=== PATIENT | male | born 1940 | race Caucasian/White ===

== ENCOUNTER 2023-10-10 19:32 | Emergency (ER) | payer MEDICARE, BC, SELFPAY ==
[2023-10-10 19:33] VITALS: BP 172/74
[2023-10-10 20:00] VITALS: BMI 28.5
[2023-10-10 20:45] VITALS: BP 121/65
--- NOTE | 2023-10-10 22:22 | ED.GENMED ---
History of Present Illness
General
Chief Complaint: Fall
Source: patient
Exam Limitations: none
Time Seen by Provider: 10/10/23 19:55
Nursing documentation reviewed up to this point in time: agreed with
Travel History
Have you had any contact with someone who has COVID-19?: No
Do you have any symptoms of coronavirus? Fever > 100 degrees, chills, cough, shortness of breath, sore throat, loss of taste or smell, muscle aches, or headache?: No
History of Present Illness
History of Present Illness:
83-year-old male with a past medical history of hyperlipidemia who presents to the emergency room for evaluation after fall. Patient reports that he was holding his son's dog on a leash in his left hand and the dog pulled him and he fell towards
the left side. He says he landed on his left arm and left hip/knee. He thinks he had minor head trauma but did not lose consciousness. He was able to get up and has been ambulatory since the fall. He says he had some soreness in his left
shoulder, left wrist, left knee and left hip since the fall and he also has mild headache. Came to the emergency room for assessment. Denies any neck pain or back pain. Denies any chest or abdominal pain. He denies being on blood thinners.
Past History
Past History
ED Past Medical History: None
ED Past Surgical History: None
Social History
Tobacco: Non-smoker
Alcohol: None
Review of Systems
Review of Systems
All Other Systems: ROS reviewed and negative except as documented in HPI and ROS
Constitutional: Denies fever or chills
Respiratory: Denies cough or trouble breathing
Cardiac: Denies chest pain or palpitations
ABD/GI: Denies abdominal pain, nausea or vomiting
: Denies flank pain
Musculoskeletal: Reports joint pain (Left knee pain, left wrist pain, left shoulder pain, left hip pain); Denies neck pain or back pain
Neurological: Reports headache; Denies dizzy, weakness or numbness
Phy Exam
Physical Exam
Physical Exam:
General: Awake, alert, oriented x3; no acute distress
Head: Normocephalic, atraumatic
Eyes: Conjunctiva normal, pupils equal round and reactive to light bilaterally
Throat: Airway intact, handling secretions
Neck: Trachea midline, no cervical spine tenderness
Lungs: Breathing comfortably not in distress
Heart: Regular rate; no chest wall tenderness
Abd: Soft, non distended, nontender
Neuro: Cranial nerves grossly intact, speech fluid, no gross motor or sensory deficits
Skin: Minor abrasion to the left wrist, left knee
Extremities:
Left shoulder�minor tenderness anterior humeral head but no deformity, full active range of motion with minimal discomfort
Left wrist�minor abrasion to the hypothenar eminence of the left no swelling or deformity left wrist, no bony tenderness in the left wrist including in the snuffbox and full active range of motion without discomfort
Left knee�minor abrasion of the left knee near tibial tuberosity, no effusion, no joint line tenderness, no pain with manipulation of patella, full active range of motion left knee and able to bear weight
Left hip�no ecchymosis, full active range of motion, weightbearing with minimal discomfort and normal gait without limp
Rest of extremities�atraumatic, good range of motion; he has good pulses in all extremities
Scores
Heart Failure Risk
Heart Failure Risk Score: Not Applicable
Heart Score for Chest Pain Patients
STEMI patient?: Not applicable
Withdrawal Assessment of Alcohol
Withdrawal Assessment Completed?: Not applicable
Course
Orders/Labs/Results
Orders:
Orders
10/10/23 20:01
CR Hip - LT w/wo Pel 2-3 Vw* Urgent
Comment:
Reason For Exam: pain s/p fall onto left side
Include a pelvis x-ray?: Yes
CR Knee - Left 4 Or More View* Urgent
Comment:
Reason For Exam: pain s/p fall onto left side
CR Shoulder, Trauma - Left Urgent
Reason For Exam: pain s/p fall onto left side
CR Wrist - Left Min 3 Views Urgent
Comment:
Reason For Exam: pain s/p fall onto left side
10/10/23 20:02
CT Cervical Spine W/o Iv Contr Urgent
Comment:
Reason For Exam: fall onto left side with headstrike
CT Head W/o Iv Contrast Urgent
Comment:
Reason For Exam: fall onto left side with headstrike
Vital Signs
Initial and Last Documented VS:
Initial Vital Signs
Temp Pulse Resp BP Pulse Ox
36.7 C 73 18 172/74 98
10/10/23 19:33 10/10/23 19:33 10/10/23 19:33 10/10/23 19:33 10/10/23 19:33
Last Documented Vital Signs
Temp Pulse Resp BP Pulse Ox
36.7 C 73 18 121/65 98
10/10/23 19:33 10/10/23 19:33 10/10/23 19:33 10/10/23 20:45 10/10/23 19:33
MDM/Problems Addressed
Differential Diagnosis Includes:
Musculoskeletal complaints: Fracture, contusion, dislocation, sprain
Head trauma: Must rule out intracranial hemorrhage although low clinical suspicion; differential would also include mild concussion, scalp contusion
MDM/Problems Addressed:
83-year-old male presents for evaluation after a fall as described above. Landed on his left side with complaints as above. He was hypertensive in triage normalized by my assessment; rest of vitals normal. Exam as above. Does not appear to have
any significant injuries. He had imaging ordered in triage including CT head and cervical spine which were negative for any acute posttraumatic injuries. X-rays of the left wrist, shoulder, knee, hip all negative for any acute pathology, only
chronic osteoarthritis. Cleaned and dressed his minor abrasions; his tetanus is up-to-date. Will plan to discharge advised rest, ice, Tylenol as needed. Patient very happy with this plan and in fact is requesting discharge. All questions
answered.
*Radiology
Radiology exam reviewed: radiology read reviewed
*Pulse Oximetry
Patient hypoxic: no
*Critical Care Note
Total Time (30-74mins, 75-104mins- exclusive of procedures): Not Applicable
Data Reviewed
Source: patient and records
ED Attending Note
-
Portions of this chart may have been created with voice recognition software.� Occasional wrong word or��sound alike� substitutions may have occurred due to the inherent limitations of voice recognition software.
Discharge Plan
Departure
Patient Disposition: Home (Routine Discharge)
Date of Disposition: 10/10/23
Time of Disposition: 21:57
Patient with high blood pressure during this ER visit?: No
Discharge Problem:
Abrasion, Contusion of knee, Left wrist sprain, Contusion of left shoulder, Contusion of hip
Instructions: Contusion (DC), Skin Abrasions (DC)
Prescriptions:
No Action
amoxicillin-pot clavulanate 875-125 mg tablet
1 tab PO BID 7 Days Qty: 14 0RF
amoxicillin 500 mg capsule
500 mg PO BID Qty: 10 0RF
Referrals:
Williams Mullen MD [Family Provider] - Follow up in 5-7 days
Activity Restrictions/Additional Instructions:
Thank you for visiting the Emergency Department at [facility].
1. Please schedule a follow up appointment as directed. Call first thing tomorrow morning to make an appointment.
2. If indicated, please take your medications as instructed and indicated on discharge paperwork.
3. If any of your symptoms do not improve, or persist, or become more severe within 6-12 hours, please return to the emergency department for further care.
4. Please return to the emergency department if you develop a headache, neck pain/stiffness, fever greater than 100.4F, chest pain, shortness of breath, persistent nausea, vomiting, slurred speech, difficulty walking, numbness/tingling, weakness,
signs of infection or any other symptoms that are worrisome to you.
Please call [phone] if you have any questions.
Interventions
Interventions:
*Risk Screen - Suicide Last Done: 10/10/23 19:33
*General Assessment Last Done: 10/10/23 19:33
*Neglect/Abuse Screening Last Done: 10/10/23 19:33
ED- Fall Risk Assessment Last Done: 10/10/23 20:00
*ED COVID-19 Vaccine History Last Done: 10/10/23 19:33
*Nursing Disposition Last Done: 10/10/23 22:12
ED-Musculoskeletal Assessment Last Done: 10/10/23 20:00
ED- Neurological Assessment Last Done: 10/10/23 20:00
ED-Skin Assessment Last Done: 10/10/23 20:00
Discharge Date and Time
Discharge Date/Time: 10/10/23 22:12
Print Language: DIVEHI
== END 2023-10-10 22:12 | disposition home or self-care (01) ==
LOC: EMR 19:32
PROVIDERS: EMERGENCY PHYSICIAN Emergency Medicine; FAMILY PHYSICIAN Internal Medicine
DX: S80.02XA Contusion of left knee, initial encounter (principal); S63.502A Unspecified sprain of left wrist, initial encounter; S40.012A Contusion of left shoulder, initial encounter; S70.02XA Contusion of left hip, initial encounter; S60.812A Abrasion of left wrist, initial encounter; W19.XXXA Unspecified fall, initial encounter; E78.5 Hyperlipidemia, unspecified
CPT/HCPCS: 99285; 70450; 72125; 73030; 73110; 73502; 73564

== ENCOUNTER 2024-01-11 13:25 | Emergency (ER) | payer MEDICARE, BC, SELFPAY ==
[2024-01-11 13:33] VITALS: BP 118/62; BMI 26.6
--- NOTE | 2024-01-11 14:41 | ED.SKININJ ---
HPI-Injury
General
Chief Complaint: Bite
Source: patient
Exam Limitations: none
Time Seen by Provider: 01/11/24 14:17
Nursing documentation reviewed up to this point in time: agreed with
History of Present Illness-Injury
Initial Injury comments:
PT IS A 83 Y/O m WITH H/O HLD, HTN
says 6 weeks ago he was accidentally bit by his dog on his L posterior calf and it got infected with bad cellulitis
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
he ended up going home and getting daily infusions of invanz through wound center
he healed well
yesterdya he scraped his left forearm on the door in his house, has a skin tear
and today he got bit by a dog on the right arm while he was at the dog park
he says the plant breeder of the dog told him the dog's vaccines were UTD and to belong to this dog park, dogs have to have shots on file
he did not get the plant breeder's number and he does not want rabies vaccines
tetanus is 2021
pt is worried his wounds will get infected
Past History
Past History
ED Past Medical History: None
ED Past Surgical History: None
Social History
Tobacco: Non-smoker
Alcohol: None
Course
Vital Signs
Initial and Last Documented VS:
Initial Vital Signs
Temp Pulse Resp BP Pulse Ox
98.9 F 76 16 118/62 99
01/11/24 13:33 01/11/24 13:33 01/11/24 13:33 01/11/24 13:33 01/11/24 13:33
Last Documented Vital Signs
Temp Pulse Resp BP Pulse Ox
98.9 F 76 16 118/62 99
01/11/24 13:33 01/11/24 13:33 01/11/24 13:33 01/11/24 13:33 01/11/24 13:33
ED Attending Note
-
Portions of this chart may have been created with voice recognition software.� Occasional wrong word or��sound alike� substitutions may have occurred due to the inherent limitations of voice recognition software.
Discharge Plan
Departure
Prescriptions:
No Action
amoxicillin-pot clavulanate 875-125 mg tablet
1 tab PO BID 7 Days Qty: 14 0RF
amoxicillin 500 mg capsule
500 mg PO BID Qty: 10 0RF
Referrals:
Williams Mullen MD [Family Provider] -
Interventions
Interventions:
*Risk Screen - Suicide Last Done: 01/11/24 13:33
*General Assessment Last Done: 01/11/24 13:51
*Neglect/Abuse Screening Last Done: 01/11/24 13:33
ED- Fall Risk Assessment Last Done: 01/11/24 13:56
*ED COVID-19 Vaccine History Last Done: 01/11/24 13:51
ED-Skin Assessment Last Done: 01/11/24 13:56
Discharge Date and Time
Print Language: IRANIAN
[2024-01-11] MEDS: AUGMENTIN 500 MG/125 MG 1 TABLET PO (15:20)
== END 2024-01-11 15:25 | disposition home or self-care (01) ==
LOC: EMR 13:25
PROVIDERS: EMERGENCY PHYSICIAN Emergency Medicine; FAMILY PHYSICIAN Internal Medicine
DX: S51.851A Open bite of right forearm, initial encounter (principal); W54.0XXA Bitten by dog, initial encounter
CPT/HCPCS: 99282

== ENCOUNTER 2024-02-08 14:41 | Emergency (ER) | payer MEDICARE, BC, SELFPAY ==
[2024-02-08 14:45] VITALS: BP 144/80
[2024-02-08 17:52] LABS: % Basophils 0.5 % (0-2); % Immature Granulocytes 0.2 % (0-0.5); % Lymphocytes 22.3 % (20.5-51.1); % Monocytes 12.6 % (1.7-9.3); % Neutrophils 62.4 % (42.2-75.2); Absolute Eosinophils 0.1 10^3/uL (0-0.7); Absolute Lymphocytes 1.5 10^3/uL (1.2-3.4); Absolute Monocytes 0.8 10^3/uL (0.1-0.6); Absolute Neutrophils 4.2 10^3/uL (1.4-6.5); Hematocrit 39.8 % (39.0-52.0); Hemoglobin 13.8 g/dL (13.0-18.0); Mean Corp Hgb Conc. 34.7 g/dL (33.0-37.0); Mean Corpuscular Hgb 31.3 pg (27.0-31.0); Mean Corpuscular Volume 90.2 fL (80.0-94.0); Mean Platelet Volume 9.5 fL (7.4-10.4); Nucleated Red Blood Cells % 0 % (-); Platelet Count 243 10^3/uL (130-400); Red Blood Cell Count 4.41 10^6/uL (4.70-6.10); White Blood Cell Count 6.7 10^3/uL (4.8-10.8)
[2024-02-08 18:08] LABS: ALT (SGPT) 36 U/L (0-50); AST (SGOT) 30 U/L (17-59); Albumin 4.6 g/dl (3.5-5.0); Alkaline Phosphatase 80 U/L (38-126); Blood Urea Nitrogen 23 mg/dl (9-20); Calcium 9.6 mg/dl (8.4-10.2); Carbon Dioxide 27 mmol/L (22-30); Chloride 102 mmol/L (98-107); Glucose 93 mg/dl (70-99); Potassium 4.9 mmol/L (3.5-5.1); Sodium 139 mmol/L (135-145); Total Bilirubin 0.6 mg/dl (0.2-1.3); eGFR > 60.00
[2024-02-08 18:14] LABS: Troponin I 0.019 ng/ml
--- NOTE | 2024-02-08 19:07 | ED.SKININJ ---
HPI-Injury
General
Chief Complaint: Skin Problem
Source: patient
Exam Limitations: none
Time Seen by Provider: 02/08/24 16:21
Nursing documentation reviewed up to this point in time: agreed with
History of Present Illness-Injury
Is this injury a work related problem?: No
Is pt an associate of [facility]?: No
Initial Injury comments:
Patient states he sustained multiple wounds to left posterior leg in August as a result of scratches from his dog. He was treated for cellulits and he states all of his wounds healed but he continues to have issues with 1 wound on left calf. Site
now is becoming red, swollen, and painful. Thick scab approx 1cm round covering wound. Brought self to ED for eval. He denies fever, chills. Reports an episode of intermittent sharp pain to his chest earlier this afternoon. No aggravating or
alleviating factors. Denies and n/v/diaphoresis. No SOB. No prior history of same. Reports symptm lasted 'for just a few minutes. Currently pain free.
Past History
Past History
ED Past Medical History: GERD, HTN and Hypercholesterolemia
ED Past Surgical History: None
Social History
Tobacco: Non-smoker
Alcohol: None
Review of Systems
Review of Systems
Allergies reviewed?: Yes
All Other Systems: ROS reviewed and negative except as documented in HPI and ROS
Constitutional: Reports no symptoms
Musculoskeletal: Reports no symptoms
Skin: Reports other (1cm round granulated wound to left calf. Mild surrounding erythema. Tender to touch)
Neurological: Reports no symptoms
Psychiatric: Reports no symptoms
Phy Exam
General Physical Exam
General Presentation: well appearing and no apparent distress
General age: appears stated age
General Skin: warm and dry
General Habitus: normal
Musculoskeletal Exam
Musculoskeletal Exam: full ROM and neuro vasc intact
Skin Exam
Skin Exam: normal color, warm/dry, no rash and other (1cm round grandulated wound to left calf. Mild surrounding erythema. Tender. Granulated tissue removed by me at the request of his dermatololgist. Started on clindamycin 300mg bid at request
of his private derm (jenny). No drainage from wound. )
Psychiatric Exam
Psychiatric Exam: normal mood/affect
Course
Orders/Labs/Results
Orders:
Orders
02/08/24 14:43
Electrocardiogram (*1) Urgent
Reason for Study: Chest Pain
02/08/24 14:44
EKG- Treatment ONCE
02/08/24 17:06
Clindamycin HCl [Cleocin] 300 mg PO NOW STA
02/08/24 17:27
Complete Blood Count/With Diff Urgent
Comprehensive Metabolic Panel Urgent
Troponin I Urgent
Wound Culture [Wound/Abscess/Other Culture] Urgent
PIA Source: Leg
Specimen Description: Left
Date Specimen was Collected: 02/08/24
Time Specimen was Collected: 17:05
02/08/24 17:47
Mupirocin [Bactroban 2% Ointment] 1 applic TOPICAL NOW STA
Abnormal Lab Results
02/08/24
17:27
RBC 4.41 L 10^6/uL
(4.70-6.10)
MCH 31.3 H pg
(27.0-31.0)
Absolute Monos (auto) 0.8 H 10^3/uL
(0.1-0.6)
Monocytes % 12.6 H %
(1.7-9.3)
BUN 23 H mg/dl
(9-20)
02/08/24 17:27
02/08/24 17:27
Vital Signs
Initial and Last Documented VS:
Initial Vital Signs
Temp Pulse Resp BP Pulse Ox
98.2 F 76 16 144/80 98
02/08/24 14:45 02/08/24 14:45 02/08/24 14:45 02/08/24 14:45 02/08/24 14:45
Last Documented Vital Signs
Temp Pulse Resp BP Pulse Ox
98.2 F 76 16 144/80 98
02/08/24 14:45 02/08/24 14:45 02/08/24 14:45 02/08/24 14:45 02/08/24 14:45
*Critical Care Note
Total Time (30-74mins, 75-104mins- exclusive of procedures): Not Applicable
Update Note
Update Note:
Spoke with patients private optometry professor by phone. He requested debridement of wound, wound culture, clindamycin 300mg bid. All completed. No further episodes of sharp chest pain. EKG, troponin neg. He is discharged home and will follow up with
PCP and derm. Given instructions on s/s to return to ED and he is agreeable to plan.
ED Attending Note
-
Portions of this chart may have been created with voice recognition software.� Occasional wrong word or��sound alike� substitutions may have occurred due to the inherent limitations of voice recognition software.
Discharge Plan
Departure
Patient Disposition: Home (Routine Discharge)
Date of Disposition: 02/08/24
Time of Disposition: 18:52
Patient with high blood pressure during this ER visit?: No
Condition: Good
Covid-19: Not Applicable
Discharge Problem:
Cellulitis and abscess of left leg
Instructions: Wound Care (DC), Cellulitis (Skin Infection), Adult (DC)
Prescriptions:
New
clindamycin HCl 300 mg capsule
300 mg PO BID Qty: 20 0RF
mupirocin 2 % ointment
1 applic topical BID Qty: 15 0RF
No Action
amoxicillin-pot clavulanate 875-125 mg tablet
1 tab PO BID 7 Days Qty: 14 0RF
amoxicillin 500 mg capsule
500 mg PO BID Qty: 10 0RF
amoxicillin-pot clavulanate [Augmentin] 500-125 mg tablet
1 tab PO BID Qty: 14 0RF
Referrals:
Williams Mullen MD [Family Provider] -
[facility] - Call in 1-3 days for appt
Activity Restrictions/Additional Instructions:
Return to the emergency department immediately for fever/chills, increasing pain/redness/swelling/drainge left leg wound, or for any further concerns.
Interventions
Interventions:
*Risk Screen - Suicide Last Done: 02/08/24 16:00
*General Assessment Last Done: 02/08/24 16:00
*Neglect/Abuse Screening Last Done: 02/08/24 16:00
ED- Fall Risk Assessment Last Done: 02/08/24 16:00
ED- Cardiac Assessment Last Done: 02/08/24 16:00
Discharge Date and Time
Print Language: PASHTO
[2024-02-08] MEDS: BACTROBAN 2% OINTMENT 1 APPLIC TOPICAL (19:31)
[2024-02-08] MEDS: CLEOCIN 300 MG PO (19:31)
== END 2024-02-08 19:51 | disposition home or self-care (01) ==
LOC: EMR 14:41
PROVIDERS: Nurse Practitioner; EMERGENCY PHYSICIAN Emergency Medicine; FAMILY PHYSICIAN Internal Medicine
DX: L02.416 Cutaneous abscess of left lower limb (principal); L03.116 Cellulitis of left lower limb
CPT/HCPCS: 99284; 97597; 80053; 84484; 85025; 87070; 87077; 87205; 93005

== ENCOUNTER → 2024-02-24 12:25 | Outpatient (REF) | payer MEDICARE, BC, SELFPAY | LOC: WOUND 12:25 | PROVIDERS: ATTENDING PHYSICIAN Surgery | DX: L97.222 Non-pressure chronic ulcer of left calf with fat layer exposed (principal); L97.211 Non-pressure chronic ulcer of right calf limited to breakdown of skin; D49.2 Neoplasm of unspecified behavior of bone, soft tissue, and skin; I87.2 Venous insufficiency (chronic) (peripheral); I73.9 Peripheral vascular disease, unspecified | CPT/HCPCS: 88305; 11104; 11105; 99204 ==

== ENCOUNTER → 2024-03-02 13:12 | Outpatient (REF) | payer MEDICARE, BC, SELFPAY | LOC: WOUND 13:12 | PROVIDERS: ATTENDING PHYSICIAN Surgery | DX: L97.222 Non-pressure chronic ulcer of left calf with fat layer exposed (principal); L97.211 Non-pressure chronic ulcer of right calf limited to breakdown of skin; D49.2 Neoplasm of unspecified behavior of bone, soft tissue, and skin; I87.2 Venous insufficiency (chronic) (peripheral); I73.9 Peripheral vascular disease, unspecified | CPT/HCPCS: 99213 ==

== ENCOUNTER → 2024-03-08 12:57 | Outpatient (REF) | payer MEDICARE, BC, SELFPAY | LOC: RAD 12:57 | PROVIDERS: ATTENDING PHYSICIAN Surgery; FAMILY PHYSICIAN Internal Medicine | DX: L97.222 Non-pressure chronic ulcer of left calf with fat layer exposed (principal); I73.9 Peripheral vascular disease, unspecified | CPT/HCPCS: 93922; 93925 ==

== ENCOUNTER → 2024-03-12 10:51 | Outpatient (REF) | payer MEDICARE, BC, SELFPAY | LOC: WOUND 10:51 | PROVIDERS: ATTENDING PHYSICIAN Surgery | DX: L97.222 Non-pressure chronic ulcer of left calf with fat layer exposed (principal); L97.211 Non-pressure chronic ulcer of right calf limited to breakdown of skin; D49.2 Neoplasm of unspecified behavior of bone, soft tissue, and skin; I87.2 Venous insufficiency (chronic) (peripheral); I73.9 Peripheral vascular disease, unspecified | CPT/HCPCS: 99213 ==

== ENCOUNTER → 2024-03-24 13:22 | Outpatient (REF) | payer MEDICARE, BC, SELFPAY | LOC: RAD 13:22 | PROVIDERS: ATTENDING PHYSICIAN Surgery; FAMILY PHYSICIAN Internal Medicine | DX: L97.222 Non-pressure chronic ulcer of left calf with fat layer exposed (principal) | CPT/HCPCS: 93970 ==

== ENCOUNTER → 2024-03-26 14:36 | Outpatient (REF) | payer MEDICARE, BC, SELFPAY | LOC: WOUND 14:36 | PROVIDERS: ATTENDING PHYSICIAN Surgery; FAMILY PHYSICIAN Internal Medicine | DX: L97.222 Non-pressure chronic ulcer of left calf with fat layer exposed (principal); L97.211 Non-pressure chronic ulcer of right calf limited to breakdown of skin; D49.2 Neoplasm of unspecified behavior of bone, soft tissue, and skin; I87.2 Venous insufficiency (chronic) (peripheral); I73.9 Peripheral vascular disease, unspecified | CPT/HCPCS: 99213 ==

== ENCOUNTER → 2024-04-02 14:07 | Outpatient (REF) | payer MEDICARE, BC, SELFPAY | LOC: WOUND 14:07 | PROVIDERS: ATTENDING PHYSICIAN Surgery; FAMILY PHYSICIAN Internal Medicine | DX: L97.212 Non-pressure chronic ulcer of right calf with fat layer exposed (principal); D49.2 Neoplasm of unspecified behavior of bone, soft tissue, and skin; I87.2 Venous insufficiency (chronic) (peripheral); I73.9 Peripheral vascular disease, unspecified | CPT/HCPCS: 11042 ==

== ENCOUNTER → 2024-04-09 14:37 | Outpatient (REF) | payer MEDICARE, BC, SELFPAY | LOC: WOUND 14:37 | PROVIDERS: ATTENDING PHYSICIAN Surgery; FAMILY PHYSICIAN Internal Medicine | DX: L97.212 Non-pressure chronic ulcer of right calf with fat layer exposed (principal); L97.121 Non-pressure chronic ulcer of left thigh limited to breakdown of skin; D49.2 Neoplasm of unspecified behavior of bone, soft tissue, and skin; I87.2 Venous insufficiency (chronic) (peripheral); I73.9 Peripheral vascular disease, unspecified | CPT/HCPCS: 11042 ==

== ENCOUNTER → 2024-04-23 14:36 | Outpatient (REF) | payer MEDICARE, BC, SELFPAY | LOC: WOUND 14:36 | PROVIDERS: ATTENDING PHYSICIAN Surgery; FAMILY PHYSICIAN Internal Medicine | DX: L97.212 Non-pressure chronic ulcer of right calf with fat layer exposed (principal); L97.121 Non-pressure chronic ulcer of left thigh limited to breakdown of skin; D49.2 Neoplasm of unspecified behavior of bone, soft tissue, and skin; I87.2 Venous insufficiency (chronic) (peripheral); I73.9 Peripheral vascular disease, unspecified | CPT/HCPCS: 99213 ==

== ENCOUNTER → 2024-05-07 14:38 | Outpatient (REF) | payer MEDICARE, BC, SELFPAY | LOC: WOUND 14:38 | PROVIDERS: ATTENDING PHYSICIAN Surgery; FAMILY PHYSICIAN Internal Medicine | DX: L97.321 Non-pressure chronic ulcer of left ankle limited to breakdown of skin (principal); S51.802A Unspecified open wound of left forearm, initial encounter; D49.2 Neoplasm of unspecified behavior of bone, soft tissue, and skin; I87.2 Venous insufficiency (chronic) (peripheral); I73.9 Peripheral vascular disease, unspecified; X58.XXXA Exposure to other specified factors, initial encounter | CPT/HCPCS: 99213 ==

== ENCOUNTER → 2024-05-21 14:04 | Outpatient (REF) | payer MEDICARE, BC, SELFPAY | LOC: WOUND 14:04 | PROVIDERS: ATTENDING PHYSICIAN Surgery; FAMILY PHYSICIAN Internal Medicine | DX: L97.321 Non-pressure chronic ulcer of left ankle limited to breakdown of skin (principal); S51.802A Unspecified open wound of left forearm, initial encounter; I87.2 Venous insufficiency (chronic) (peripheral); I73.9 Peripheral vascular disease, unspecified; X58.XXXA Exposure to other specified factors, initial encounter | CPT/HCPCS: 99213 ==

== ENCOUNTER → 2024-06-04 14:27 | Outpatient (REF) | payer MEDICARE, BC, SELFPAY | LOC: WOUND 14:27 | PROVIDERS: ATTENDING PHYSICIAN Surgery; FAMILY PHYSICIAN Internal Medicine | DX: L97.111 Non-pressure chronic ulcer of right thigh limited to breakdown of skin (principal); S61.402A Unspecified open wound of left hand, initial encounter; D49.2 Neoplasm of unspecified behavior of bone, soft tissue, and skin; I87.2 Venous insufficiency (chronic) (peripheral); I73.9 Peripheral vascular disease, unspecified; X58.XXXA Exposure to other specified factors, initial encounter | CPT/HCPCS: 99213 ==

== ENCOUNTER 2024-06-18 22:39 | Emergency (ER) | payer MEDICARE, BC, SELFPAY ==
--- NOTE | 2024-06-18 22:40 | ED.GENMED ---
ED Provider Triage
<Brad Marcos PA-C - Last Filed: 06/18/24 22:44>
-
Patient seen by provider in Triage?: Seen in Triage
84M presenting to ED for evaluation of RLE edema that he noticed tonight. PCP sent for eval for possible DVT. States feels numb but no color changes. Moderate edema noted on exam. Has palpable pedal pulse. CR < 2 sec. Warm. able to ROM foot/ankle.
US ordered
History of Present Illness
<Brad Marcos PA-C - Last Filed: 06/18/24 22:44>
General
Chief Complaint: Swelling
Time Seen by Provider: 06/19/24 01:04
<Lefty Phan MD - Last Filed: 06/19/24 02:52>
General
Source: patient
Exam Limitations: none
History of Present Illness
History of Present Illness:
84-year-old male complaining of some increasing pain right leg. Mostly lower lateral towards the ankle. Started earlier today. Feels the leg is swollen. Has had some mild shortness of breath in the morning the last week or so. However not short
of breath now. No fevers chills chest pain or other complaints
Past History
<Brad Marcos PA-C - Last Filed: 06/18/24 22:44>
Past History
ED Past Medical History: GERD, HTN and Hypercholesterolemia
ED Past Surgical History: None
Social History
Tobacco: Non-smoker
Alcohol: None
Review of Systems
<Lefty Phan MD - Last Filed: 06/19/24 02:52>
Review of Systems
All Other Systems: Not applicable
Constitutional: Denies fever or chills
Cardiac: Reports no symptoms
Phy Exam
<Lefty Phan MD - Last Filed: 06/19/24 02:52>
Physical Exam
Physical Exam:
GENERAL: Alert and oriented in no apparent distress
EYE: Orbits normal.
NECK: Supple
CARDIAC: Regular rate and rhythm without any obvious murmurs.
LUNGS: Clear breath sounds,normal
NEUROLOGICAL: Alert and oriented , grossly non-focal
SKIN: Warm and dry. Shininess to both lower extremities right greater than left. Chronic hyperpigmentation changes. Chronic edema although right leg is slightly more swollen. No tenseness to the lower leg. Good distal pulses and color. Minimal
warmth. Questionable mild erythema. Wound with dressing to the right upper thigh without surrounding erythema
PSYCH: Normal and appropriate interaction.
Scores
<Lefty Phan MD - Last Filed: 06/19/24 02:52>
Heart Failure Risk
Heart Failure Risk Score: Not Applicable
Course
<Brad Marocs PA-C - Last Filed: 06/18/24 22:44>
Orders/Labs/Results
Orders:
Orders
06/19/24 02:48
Doxycycline [Vibramycin] 100 mg PO NOW STA
06/19/24 22:44
US Periph Venous LOWER Ext RT Urgent
Reason For Exam: pain, edema
Vital Signs
Initial and Last Documented VS:
Initial Vital Signs
Temp Pulse Resp BP Pulse Ox
98.3 F 74 16 175/85 92
06/18/24 22:41 06/18/24 22:41 06/18/24 22:41 06/18/24 22:41 06/18/24 22:41
Last Documented Vital Signs
Temp Pulse Resp BP Pulse Ox
98.3 F 74 16 175/85 92
06/18/24 22:41 06/18/24 22:41 06/18/24 22:41 06/18/24 22:41 06/18/24 22:41
<Lefty Phan MD - Last Filed: 06/19/24 02:52>
Orders/Labs/Results
Orders:
Orders
06/19/24 02:48
Doxycycline [Vibramycin] 100 mg PO NOW STA
06/19/24 22:44
US Periph Venous LOWER Ext RT Urgent
Reason For Exam: pain, edema
Vital Signs
Initial and Last Documented VS:
Initial Vital Signs
Temp Pulse Resp BP Pulse Ox
98.3 F 74 16 175/85 92
06/18/24 22:41 06/18/24 22:41 06/18/24 22:41 06/18/24 22:41 06/18/24 22:41
Last Documented Vital Signs
Temp Pulse Resp BP Pulse Ox
98.3 F 74 16 175/85 92
06/18/24 22:41 06/18/24 22:41 06/18/24 22:41 06/18/24 22:41 06/18/24 22:41
<Lefty Phan MD - Last Filed: 06/19/24 02:52>
MDM/Problems Addressed
Differential Diagnosis Includes:
84-year-old male some pain to the right lower leg. Mild swelling and minimal warmth and erythema. Not convinced this is a cellulitis. No DVT by ultrasound. Good distal pulses. Nothing to suspect an arterial issue. Also nothing to suspect
compartment syndrome. Will cover for a mild cellulitis. Clinically not in heart failure.
<Lefty Phan MD - Last Filed: 06/19/24 02:52>
*Radiology
Radiology exam reviewed: radiology read reviewed (Negative ultrasound for DVT)
*Pulse Oximetry
Patient hypoxic: no
*Critical Care Note
Total Time (30-74mins, 75-104mins- exclusive of procedures): Not Applicable
Data Reviewed
Review of Other/Old Records Reveals: Labs, Records and Testing
ED Attending Note
<Brad Marcos PA-C - Last Filed: 06/18/24 22:44>
-
Portions of this chart may have been created with voice recognition software.� Occasional wrong word or��sound alike� substitutions may have occurred due to the inherent limitations of voice recognition software.
Discharge Plan
Departure
Patient Disposition: Home (Routine Discharge)
Date of Disposition: 06/19/24
Time of Disposition: 02:48
Patient with high blood pressure during this ER visit?: Yes
Discharge Problem:
Right lower extremity swelling, Possible cellulitis
Prescriptions:
New
doxycycline hyclate 100 mg capsule
100 mg PO BID 10 Days Qty: 20 0RF
No Action
amoxicillin-pot clavulanate 875-125 mg tablet
1 tab PO BID 7 Days Qty: 14 0RF
amoxicillin 500 mg capsule
500 mg PO BID Qty: 10 0RF
amoxicillin-pot clavulanate [Augmentin] 500-125 mg tablet
1 tab PO BID Qty: 14 0RF
clindamycin HCl 300 mg capsule
300 mg PO BID Qty: 20 0RF
mupirocin 2 % ointment
1 applic topical BID Qty: 15 0RF
Activity Restrictions/Additional Instructions:
Keep the leg elevated
Antibiotics as directed
Follow-up with your physician early in the week
The prescription was sent to your pharmacy
Return sooner with increased pain increased swelling increased redness fever or any other concerning symptoms
Interventions
Interventions:
*Risk Screen - Suicide Last Done: 06/18/24 22:41
*General Assessment Last Done: 06/18/24 22:41
*Neglect/Abuse Screening Last Done: 06/18/24 22:41
Discharge Date and Time
Print Language: GRENADIAN
[2024-06-18 22:41] VITALS: BP 175/85
[2024-06-19 02:00] VITALS: BMI 28.8
[2024-06-19] MEDS: VIBRAMYCIN 100 MG PO (03:03)
[2024-06-19 03:15] VITALS: BP 147/79
== END 2024-06-19 03:15 | disposition home or self-care (01) ==
LOC: EMR 22:39
PROVIDERS: EMERGENCY PHYSICIAN Emergency Medicine
DX: R22.41 Localized swelling, mass and lump, right lower limb (principal); K21.9 Gastro-esophageal reflux disease without esophagitis; I10 Essential (primary) hypertension; E78.00 Pure hypercholesterolemia, unspecified
CPT/HCPCS: 99284; 93971

== ENCOUNTER 2024-06-22 14:14 | Emergency (ER) | payer MEDICARE, BC, SELFPAY ==
--- NOTE | 2024-06-22 14:22 | ED.GENMED ---
ED Provider Triage
<Tala Light PA-C - Last Filed: 06/22/24 14:23>
-
Patient seen by provider in Triage?: Seen in Triage
Attestation: A medical screening examination has been initiated by a qualified medical provider. Based on the assessment performed at this time, it has been determined that an emergent medical condition may exist and the patient has been informed
that further medical evaluation and possible additional diagnostic testing may be needed.
HPI: 84yoM here with R lower leg pain and redness. Seen in the ED 4 days ago for the same. Venous duplex negative for DVT. Started on doxy for possible cellulitis. Here with worsening pain. No fevers.
GENERAL: Alert , in no apparent distress
EYE: No visual abnormalities.
NECK: Trachea midline
ENT: No visible abnormalities.
LUNGS: No acute respiratory distress
NEUROLOGICAL: Alert and oriented
SKIN: Skin intact. No visible changes.
MUSCULOSKELETAL: Moving extremities normally
PSYCH: Normal and appropriate interaction.
This is a medical evaluation conducted in person to initiate diagnostic evaluation and provide initial therapeutics. Please see further documentation by the treating clinician.
CBC and CMP ordered.
History of Present Illness
<Tala Light PA-C - Last Filed: 06/22/24 14:23>
General
Chief Complaint: Skin Problem
Time Seen by Provider: 06/22/24 16:47
<Wm Plascencia DO - Last Filed: 06/22/24 17:55>
General
Source: patient and records
Exam Limitations: none
Nursing documentation reviewed up to this point in time: agreed with
History of Present Illness
History of Present Illness:
84-year-old male presents with right lower extremity huang pain, seen here few days ago with similar complaints at that time his leg was red and swollen had a Doppler which was negative for clot started on doxycycline for cellulitis redness and
swelling is improved with the developed some pain, I did review pictures from a few days ago that the patient has on his phone patient had a dog bite to his left upper thigh few years ago treated with antibiotics orally ultimately with 10 days of IV
Invanz through infectious disease he is wondering if he can get that therapy now for his right lower extremity, he has had no fever chills no drainage he has another wound on his right upper extremity followed at the [facility]
which is healing
Past History
<Tala Light PA-C - Last Filed: 06/22/24 14:23>
Past History
ED Past Medical History: GERD, HTN and Hypercholesterolemia
ED Past Surgical History: None
Social History
Tobacco: Non-smoker
Alcohol: None
<Wm Plascencia DO - Last Filed: 06/22/24 17:55>
Social History
Drug: None
Personal:
Living: with family
Employment: Employed
Review of Systems
<Wm Plascencia DO - Last Filed: 06/22/24 17:55>
Review of Systems
All Other Systems: Not applicable
Constitutional: Denies fever or fatigue
EENT: Reports no symptoms
Respiratory: Reports no symptoms
Musculoskeletal: Reports muscle pain and edema
Skin: Reports other (Right anterior huang); Denies itching or rash
Neurological: Reports no symptoms
Phy Exam
<Wm Plascencia DO - Last Filed: 06/22/24 17:55>
Physical Exam
Physical Exam:
Physical Exam
General: no apparent distress, not acutely ill
Neck: No jaundice
Heart: s1/s2 regular rate and rhythm, no murmur. equal radial pulses.
Lungs: no acute respiratory distress. clear bilaterally
Abdomen: Not tender
Neuro: alert and oriented. no focal neurological deficits
Skin: no rash
Psychiatric: well kept. interactive and cooperative
Extremities: Right lower extremity minimal erythema and no warmth mild subjective tenderness distal pulses are intact(swelling redness markedly improved from a few days ago for my review of the picture) small well-healed
lesion on the right mid anterior thigh with no cellulitic change
Course
<Tala Light PA-C - Last Filed: 06/22/24 14:23>
Orders/Labs/Results
Orders:
Orders
06/22/24 14:27
Complete Blood Count/With Diff Urgent
Comprehensive Metabolic Panel Urgent
06/22/24 17:15
CeFAZolin 2 GRAM [Ancef] 2 grams in 10 ml IV NOW
06/22/24 17:17
Acetaminophen [Tylenol] 1,000 mg PO NOW STA
Abnormal Lab Results
06/22/24
14:27
MCHC 32.4 L g/dL
(33.0-37.0)
Absolute Monos (auto) 1.1 H 10^3/uL
(0.1-0.6)
Monocytes % 17.7 H %
(1.7-9.3)
BUN 21 H mg/dl
(9-20)
Glucose 103 H mg/dl
(70-99)
06/22/24 14:27
06/22/24 14:27
Vital Signs
Initial and Last Documented VS:
Initial Vital Signs
Temp Pulse Resp BP Pulse Ox
98.5 F 81 20 117/66 96
06/22/24 15:33 06/22/24 15:33 06/22/24 15:33 06/22/24 15:33 06/22/24 15:33
Last Documented Vital Signs
Temp Pulse Resp BP Pulse Ox
98.5 F 81 20 117/66 96
06/22/24 15:33 06/22/24 15:33 06/22/24 15:33 06/22/24 15:33 06/22/24 15:33
<Wm Plascencia DO - Last Filed: 06/22/24 17:55>
Orders/Labs/Results
Orders:
Orders
06/22/24 14:27
Complete Blood Count/With Diff Urgent
Comprehensive Metabolic Panel Urgent
06/22/24 17:15
CeFAZolin 2 GRAM [Ancef] 2 grams in 10 ml IV NOW
06/22/24 17:17
Acetaminophen [Tylenol] 1,000 mg PO NOW STA
Abnormal Lab Results
06/22/24
14:27
MCHC 32.4 L g/dL
(33.0-37.0)
Absolute Monos (auto) 1.1 H 10^3/uL
(0.1-0.6)
Monocytes % 17.7 H %
(1.7-9.3)
BUN 21 H mg/dl
(9-20)
Glucose 103 H mg/dl
(70-99)
06/22/24 14:27
06/22/24 14:27
Vital Signs
Initial and Last Documented VS:
Initial Vital Signs
Temp Pulse Resp BP Pulse Ox
98.5 F 81 20 117/66 96
06/22/24 15:33 06/22/24 15:33 06/22/24 15:33 06/22/24 15:33 06/22/24 15:33
Last Documented Vital Signs
Temp Pulse Resp BP Pulse Ox
98.5 F 81 20 117/66 96
06/22/24 15:33 06/22/24 15:33 06/22/24 15:33 06/22/24 15:33 06/22/24 15:33
<Wm Plascencia DO - Last Filed: 06/22/24 17:55>
MDM/Problems Addressed
Differential Diagnosis Includes:
Cellulitis neuropathy no signs of DVT by history and physical, no signs of compartment syndrome doubt abscess
MDM/Problems Addressed:
Right leg pain
Chronic conditions affecting care:
Recurrent cellulitis and wound
Acute Exacerbation and/or Progression of Chronic Illness:
Recurrent cellulitis
<Wm Plascencia DO - Last Filed: 06/22/24 17:55>
*Critical Care Note
Total Time (30-74mins, 75-104mins- exclusive of procedures): Not Applicable
<Wm Plascencia DO - Last Filed: 06/22/24 17:55>
Update Note
Update Note:
Update labs are noted, patient is not systemically ill, perhaps a little remaining cellulitis although he is clinically improving with doxycycline we will give some IV Ancef here I do not see indication for admission, nor Invanz, ultimately he may
benefit from outpatient ID evaluation nonurgently
ED Attending Note
<Tala Light PA-C - Last Filed: 06/22/24 14:23>
-
Portions of this chart may have been created with voice recognition software.� Occasional wrong word or��sound alike� substitutions may have occurred due to the inherent limitations of voice recognition software.
Discharge Plan
Departure
Patient Disposition: Home (Routine Discharge)
Date of Disposition: 06/22/24
Time of Disposition: 17:53
Patient with high blood pressure during this ER visit?: No
Condition: Good
Discharge Problem:
Cellulitis
Instructions: Wound Care (DC), Cellulitis (Skin Infection), Adult (DC)
Prescriptions:
New
cephalexin 500 mg capsule
500 mg PO Q6H 7 Days Qty: 28 0RF
No Action
amoxicillin-pot clavulanate 875-125 mg tablet
1 tab PO BID 7 Days Qty: 14 0RF
amoxicillin 500 mg capsule
500 mg PO BID Qty: 10 0RF
amoxicillin-pot clavulanate [Augmentin] 500-125 mg tablet
1 tab PO BID Qty: 14 0RF
clindamycin HCl 300 mg capsule
300 mg PO BID Qty: 20 0RF
mupirocin 2 % ointment
1 applic topical BID Qty: 15 0RF
doxycycline hyclate 100 mg capsule
100 mg PO BID 10 Days Qty: 20 0RF
Referrals:
Williams Mullen MD [Family Provider] -
Annette Doyle MD [Active] - Next open appointment
Activity Restrictions/Additional Instructions:
Continue doxycycline add Keflex 500 mg 4 times a day
Follow-up with your primary care provider and infectious disease
Interventions
Interventions:
*Risk Screen - Suicide Last Done: 06/22/24 14:20
*General Assessment Last Done: 06/22/24 14:20
*Neglect/Abuse Screening Last Done: 06/22/24 14:20
*ED COVID-19 Vaccine History Last Done: 06/22/24 14:20
Discharge Date and Time
Print Language: CROATIAN
[2024-06-22 14:37] LABS: % Eosinophils 3.1 % (0-6); % Immature Granulocytes 0.2 % (0-0.5); % Lymphocytes 23.6 % (20.5-51.1); % Monocytes 17.7 % (1.7-9.3); % Neutrophils 54.4 % (42.2-75.2); Absolute Basophils 0.1 10^3/uL (0-0.2); Absolute Eosinophils 0.2 10^3/uL (0-0.7); Absolute Lymphocytes 1.4 10^3/uL (1.2-3.4); Absolute Monocytes 1.1 10^3/uL (0.1-0.6); Absolute Neutrophils 3.3 10^3/uL (1.4-6.5); Hematocrit 42.3 % (39.0-52.0); Hemoglobin 13.7 g/dL (13.0-18.0); Mean Corp Hgb Conc. 32.4 g/dL (33.0-37.0); Mean Corpuscular Hgb 28.8 pg (27.0-31.0); Mean Corpuscular Volume 88.9 fL (80.0-94.0); Mean Platelet Volume 9.2 fL (7.4-10.4); Nucleated Red Blood Cells % 0 % (-); Platelet Count 278 10^3/uL (130-400); Red Blood Cell Count 4.76 10^6/uL (4.70-6.10); White Blood Cell Count 6.1 10^3/uL (4.8-10.8)
[2024-06-22 14:47] LABS: ALT (SGPT) 24 U/L (0-50); AST (SGOT) 23 U/L (17-59); Albumin 4.6 g/dl (3.5-5.0); Alkaline Phosphatase 74 U/L (38-126); Blood Urea Nitrogen 21 mg/dl (9-20); Calcium 9.2 mg/dl (8.4-10.2); Carbon Dioxide 28 mmol/L (22-30); Chloride 101 mmol/L (98-107); Glucose 103 mg/dl (70-99); Potassium 4.1 mmol/L (3.5-5.1); Sodium 138 mmol/L (135-145); Total Bilirubin 0.5 mg/dl (0.2-1.3); eGFR > 60.00
[2024-06-22 15:33] VITALS: BP 117/66
[2024-06-22] MEDS: ANCEF 10 IV (17:46)
[2024-06-22] MEDS: TYLENOL 1000 MG PO (17:47)
== END 2024-06-22 17:55 | disposition home or self-care (01) ==
LOC: EMR 14:14
PROVIDERS: Physician Assistant; EMERGENCY PHYSICIAN Emergency Medicine; FAMILY PHYSICIAN Internal Medicine
DX: L03.115 Cellulitis of right lower limb (principal); E78.00 Pure hypercholesterolemia, unspecified; I10 Essential (primary) hypertension; K21.9 Gastro-esophageal reflux disease without esophagitis
CPT/HCPCS: 96374; 99284; 80053; 85025

== ENCOUNTER → 2024-06-25 14:17 | Outpatient (REF) | payer MEDICARE, BC, SELFPAY | LOC: WOUND 14:17 | PROVIDERS: ATTENDING PHYSICIAN Surgery; FAMILY PHYSICIAN Internal Medicine | DX: L97.111 Non-pressure chronic ulcer of right thigh limited to breakdown of skin (principal); S61.402A Unspecified open wound of left hand, initial encounter; X58.XXXA Exposure to other specified factors, initial encounter; D49.2 Neoplasm of unspecified behavior of bone, soft tissue, and skin; I87.2 Venous insufficiency (chronic) (peripheral); I73.9 Peripheral vascular disease, unspecified | CPT/HCPCS: 99213 ==

== ENCOUNTER 2024-07-24 23:57 | Inpatient (IN) | payer MEDICARE, BC, SELFPAY ==
[2024-07-24 20:16] VITALS: BP 159/78; BMI 30.4
[2024-07-24 20:20] VITALS: BP 159/78
[2024-07-24 20:43] LABS: % Basophils 0.5 % (0-2); % Eosinophils 1.4 % (0-6); % Immature Granulocytes 0.3 % (0-0.5); % Lymphocytes 16.7 % (20.5-51.1); % Monocytes 16.9 % (1.7-9.3); % Neutrophils 64.2 % (42.2-75.2); Absolute Eosinophils 0.1 10^3/uL (0-0.7); Absolute Monocytes 1.1 10^3/uL (0.1-0.6); Hematocrit 37.6 % (39.0-52.0); Hemoglobin 11.7 g/dL (13.0-18.0); Mean Corp Hgb Conc. 31.1 g/dL (33.0-37.0); Mean Corpuscular Hgb 28.3 pg (27.0-31.0); Mean Platelet Volume 9.2 fL (7.4-10.4); Nucleated Red Blood Cells % 0 % (-); Platelet Count 242 10^3/uL (130-400); Red Blood Cell Count 4.13 10^6/uL (4.70-6.10); Red Cell Dist. Width 16.8 % (11.5-14.5); White Blood Cell Count 6.2 10^3/uL (4.8-10.8)
[2024-07-24 20:51] LABS: ALT (SGPT) 26 U/L (0-50); AST (SGOT) 24 U/L (17-59); Albumin 4.3 g/dl (3.5-5.0); Alkaline Phosphatase 97 U/L (38-126); Blood Urea Nitrogen 22 mg/dl (9-20); Calcium 8.9 mg/dl (8.4-10.2); Carbon Dioxide 31 mmol/L (22-30); Chloride 101 mmol/L (98-107); Estimated Creatinine Clearance 85 ml/min; Glucose 93 mg/dl (70-99); Potassium 4.1 mmol/L (3.5-5.1); Sodium 140 mmol/L (135-145); Total Bilirubin 0.9 mg/dl (0.2-1.3); Total Protein 6.5 g/dl (6.3-8.2); eGFR > 60.00
[2024-07-24 21:00] VITALS: BP 148/78
--- NOTE | 2024-07-24 21:56 | ED.GENMED ---
History of Present Illness
General
Chief Complaint: Breathing Problem
Source: patient
Exam Limitations: none
Time Seen by Provider: 07/24/24 20:41
Nursing documentation reviewed up to this point in time: agreed with
History of Present Illness
History of Present Illness:
84-year-old male diagnosed with RSV a week or so ago at an urgent care was having cough and shortness of breath low-grade fever, given steroids took 2 doses since then has had fatigue shortness of breath lower extremity edema cough wheezing rattling
in his chest 15 pound weight gain no history of heart failure not currently on a diuretic, appears to be in A-fib now seen again in urgent care earlier today suggested he go to the hospital he went home called 911 apparently had a low pulse ox
placed on oxygen
Past History
Past History
ED Past Medical History: GERD, HTN and Hypercholesterolemia
ED Past Surgical History: None
Social History
Tobacco: Non-smoker
Alcohol: None
Drug: None
Personal:
Living: with family
Employment: Employed
Phy Exam
Physical Exam
Physical Exam:
Physical Exam
General: Dyspneic appearing male
Neck: No jaundice
Heart: Irregular
Lungs: Bibasilar crackle
Abdomen: Nontender
Neuro: alert and oriented. no focal neurological deficits
Skin: no rash
Psychiatric: well kept. interactive and cooperative
Extremities: Edema is present
Scores
Heart Failure Risk
Heart Failure Risk Score: Yes
History of Stroke or TIA: No
History of intubation for respiratory distress: No
Heart rate on ED arrival >/= 110: No
SaO2 <90% on arrival on room air: Yes
HR >/=110 during 3min walk test (or too ill to perform test): Yes
ECG has acute ischemic changes: No
Urea >/=12mmol/L (BUN 33.6mg/dL): No
Serum CO2>/=35mmol/L: No
Troponin I or T elevated to MA Level (0.4mg/dL): No
NT-proBNP >/=5,000ng/L (5,000pg/ml): No
HF Risk Score: 3
Admission Status: HIGH RISK 15.9% Consider SNF treatment or admission to hospital
Course
Orders/Labs/Results
Orders:
Orders
07/24/24 20:28
Electrocardiogram (*1) Urgent
Reason for Study: Shortness of Breath
07/24/24 20:29
EKG- Treatment ONCE
07/24/24 20:30
Complete Blood Count/With Diff Urgent
Comprehensive Metabolic Panel Urgent
NT-proBNP Urgent
Troponin I Urgent
07/24/24 21:10
CR Chest - 2 Views Urgent
Comment:
Reason For Exam: sob
07/24/24 21:46
US Periph Venous LOWER Ext Kt Urgent
Comment:
Reason For Exam: swelling
07/24/24 22:08
Furosemide [Lasix] 60 mg IV NOW STA
Abnormal Lab Results
07/24/24
20:30
RBC 4.13 L 10^6/uL
(4.70-6.10)
Hgb 11.7 L g/dL
(13.0-18.0)
Hct 37.6 L %
(39.0-52.0)
MCHC 31.1 L g/dL
(33.0-37.0)
RDW 16.8 H %
(11.5-14.5)
Absolute Lymphs (auto) 1.0 L 10^3/uL
(1.2-3.4)
Absolute Monos (auto) 1.1 H 10^3/uL
(0.1-0.6)
Lymphocytes % 16.7 L %
(20.5-51.1)
Monocytes % 16.9 H %
(1.7-9.3)
Carbon Dioxide 31 H mmol/L
(22-30)
BUN 22 H mg/dl
(9-20)
07/24/24 20:30
07/24/24 20:30
Vital Signs
Initial and Last Documented VS:
Initial Vital Signs
Temp Pulse Resp BP Pulse Ox
98.5 F 81 21 159/78 94
07/24/24 20:16 07/24/24 20:16 07/24/24 20:16 07/24/24 20:16 07/24/24 20:16
Last Documented Vital Signs
Temp Pulse Resp BP Pulse Ox
98.5 F 81 21 159/78 95
07/24/24 20:16 07/24/24 20:16 07/24/24 20:20 07/24/24 20:20 07/24/24 20:20
MDM/Problems Addressed
Differential Diagnosis Includes:
Heart failure pneumonia bronchitis DVT PE
MDM/Problems Addressed:
Shortness of breath fatigue weight
Chronic conditions affecting care: HTN
Acute Exacerbation and/or Progression of Chronic Illness: HTN
*Radiology
Radiology exam reviewed: preliminary read by ED provider
*Pulse Oximetry
Patient hypoxic: yes
Comment: 87
*EKG
Interpreted by ED Provider?: Yes
Interpretation: abnormal
Comparison EKG: no comparison EKG present
Heart Rate: 70
Rate: normal
Rhythm: a-fib
Ischemia: no ischemia
*Welding Machine Operator Interpretation
Rate: normal
Interpretation: abnormal
Heart Rate: 70
Rhythm: a-fib
*Critical Care Note
Total Time (30-74mins, 75-104mins- exclusive of procedures): 8
Update Note
Update Note:
Update suspect is volume overloaded chest x-ray reviewed formal report pending proBNP pending will start on diuretic he does have an unknown allergy to sulfa, believe the risk benefits of giving Lasix support giving it to him, will require admission
some supplemental oxygen sideration for specialty consultation
ED Attending Note
-
Portions of this chart may have been created with voice recognition software.� Occasional wrong word or��sound alike� substitutions may have occurred due to the inherent limitations of voice recognition software.
Discharge Plan
Departure
Patient Disposition: Admit
Date of Disposition: 07/24/24
Time of Disposition: 22:11
Presentation/result/management discussed w/ accepting MD/DO: Hospitalist
Patient with high blood pressure during this ER visit?: Yes
Condition: Fair
Covid-19: Not Applicable
Discharge Problem:
Hypoxic, Congestive heart failure (CHF), Atrial fibrillation
Prescriptions:
No Action
amoxicillin-pot clavulanate 875-125 mg tablet
1 tab PO BID 7 Days Qty: 14 0RF
amoxicillin 500 mg capsule
500 mg PO BID Qty: 10 0RF
amoxicillin-pot clavulanate [Augmentin] 500-125 mg tablet
1 tab PO BID Qty: 14 0RF
clindamycin HCl 300 mg capsule
300 mg PO BID Qty: 20 0RF
mupirocin 2 % ointment
1 applic topical BID Qty: 15 0RF
doxycycline hyclate 100 mg capsule
100 mg PO BID 10 Days Qty: 20 0RF
cephalexin 500 mg capsule
500 mg PO Q6H 7 Days Qty: 28 0RF
Referrals:
Williams Mullen MD [Family Provider] -
Interventions
Interventions:
*Risk Screen - Suicide Last Done: 07/24/24 20:16
*General Assessment Last Done: 07/24/24 20:16
*Neglect/Abuse Screening Last Done: 07/24/24 20:16
ED- Fall Risk Assessment Last Done: 07/24/24 20:16
*ED COVID-19 Vaccine History Last Done: 07/24/24 20:16
ED- Cardiac Assessment Last Done: 07/24/24 20:16
ED- Pulmonary Assessment Last Done: 07/24/24 20:16
Discharge Date and Time
Print Language: SWEDISH
[2024-07-24 22:00] VITALS: BP 158/125
[2024-07-24 22:07] LABS: NT-proBNP 3260 pg/ml; Troponin I 0.023 ng/ml
[2024-07-24] MEDS: LASIX 60 MG IV (23:23)
[2024-07-24 23:24] VITALS: BP 121/100
--- NOTE | 2024-07-24 23:31 | HPS.HSE ---
Family Physician
-
Family Physician: Williams Mullen
Chief Complaint
-
shortness of breath
History of Present Illness
84-year-old male past medical history of congenital coronary artery abnormality, asthma, hypertension, hypercholesteremia, GERD, CVA presenting with shortness of breath for the past several weeks as well as 15 pound weight gain and increased
bilateral lower extremity edema.
He was diagnosed with RSV a week ago and went to urgent care and was prescribed steroid and inhaler but because he gets hyperactive on steroids he did not take it. He did not use inhaler due to sulfa allergy.
He did have a fever today. He denies chills currently. He has been having chest pressure with breathing.
His mother had heart disease.
He denies history of smoking. He quit drinking alcohol 4 years ago.
Medical History
Past Medical History
Past Medical History: Reports Other (congenital coronary artery abnormality, asthma, hypertension, hypercholesteremia, GERD, CVA )
Past Surgical History: Reports Other (Toe surgery, tonsillectomy, hernia repair)
Social History
Tobacco: Non-smoker
Alcohol: Former
Drug: None
Family History
Family History: CAD
Allergies / Home Medications
Allergies reflects when Allergies were last updated in [employer].
Home Medications with original date entered in [employer]
Allergy/Medication List:
Allergies
Allergy/AdvReac Type Severity Reaction Status Date / Time
ibuprofen Allergy Unknown Verified 07/24/24 20:27
midazolam [From [employer]] Allergy Unknown Verified 07/24/24 20:27
Sulfa (Sulfonamide Allergy Unknown Verified 07/24/24 20:27
Antibiotics)
Home Medications
amoxicillin 875 mg-potassium clavulanate 125 mg tablet 1 tab PO BID 7 days #14 tabs 06/23/22
amoxicillin 500 mg capsule 500 mg PO BID #10 caps 07/04/22
amoxicillin 500 mg-potassium clavulanate 125 mg tablet (Augmentin) 1 tab PO BID #14 tabs 01/11/24
clindamycin HCl 300 mg capsule 300 mg PO BID #20 caps 02/08/24
mupirocin 2 % topical ointment 1 applic topical BID #15 grams 02/08/24
doxycycline hyclate 100 mg capsule 100 mg PO BID 10 days #20 caps 06/19/24
cephalexin 500 mg capsule 500 mg PO Q6H 7 days #28 caps 06/22/24
Review of Systems
-
History Source: Patient
A 12 point ROS was completed and negative except as noted: Yes
Constitutional: Reports No Symptoms
EENT: Reports No Symptoms and See HPI
Respiratory: Reports See HPI
Cardiac: Reports See HPI
Abdomen/GI: Reports No Symptoms
: Reports No Symptoms
Musculoskeletal: Reports No Symptoms
Skin: Reports No Symptoms
Neurological: Reports No Symptoms
Endocrine: Reports No Symptoms
Hematologic/Lymphatic: Reports No Symptoms
Psych: Reports No Symptoms
Physical Exam
Vital Signs
Vital Signs
Temp Pulse Resp BP Pulse Ox
98.5 F 84 21 121/100 95
07/24/24 20:16 07/24/24 23:23 07/24/24 20:20 07/24/24 23:23 07/24/24 20:20
Physical Exam
General: Well Developed, Well Nourished and No Apparent Distress
HEENT: NormoCephalic, Moist mucous membranes and Atraumatic
Respiratory: Clear
Cardiac: S1/S2 and Regular Rhythm; No Murmur or Rub
GI: Soft, Non Tender, Non Distended and Normal Bowel Sounds; No Organomegaly
Rectal: Deferred by Provider
Musculoskeletal: No Clubbing, No Cyanosis and No Edema
Skin: No Rash
Neuro: Nonfocal/grossly intact
Laboratory Results
-
07/24/24 20:30
07/24/24 20:30
Laboratory Results
Total Bilirubin 0.9 mg/dl (0.2-1.3) 07/24/24 20:30
AST 24 U/L (17-59) 07/24/24 20:30
ALT 26 U/L (0-50) 07/24/24 20:30
Alkaline Phosphatase 97 U/L (38-126) 07/24/24 20:30
Troponin I 0.023 ng/ml 07/24/24 20:30
Data Reviewed
-
Lab Data: Labs Reviewed by me
Old Records: Reviewed
Impression/Plan
-
IMPRESSION:
PLAN:
# Acute CHF exacerbation
-Cardiac BNP 3200
-Chest x-ray shows interstitial pulm edema pattern, bilateral pleural effusion
-Check I's and O's, daily weight
-60 IV Lasix given
-Patient with chest pressure with breathing, trend troponins
-Venous ultrasound pending
-Check echo
-Cardiology consulted
# New onset atrial fibrillation rate controlled
-[id number] score of 3
-Eliquis started and stop aspirin
# Fever today as per patient
-Check COVID and influenza
History of congenital coronary abnormality
History of rheumatic fever as a child
Recent RSV infection
Essential hypertension
-Continue amlodipine
Hypercholesterolemia
-Continue Crestor
GERD
-Continue Nexium
Anxiety/depression
-Continue Wellbutrin
History of CVA
-Hold aspirin while on Eliquis
Full code
DVT prophylaxis�Eliquis
Cardiac diet
[2024-07-24 23:58] VITALS: BP 166/88
[2024-07-25] VITALS (10 sets, daily range): BP systolic 96–175; BP diastolic 42–83; BMI 29.8
[2024-07-25 00:09] LABS: COVID-19 Antigen Negative (Negative)
[2024-07-25] MEDS: ELIQUIS 5 MG PO ×2 (02:02→20:15)
[2024-07-25 02:40] LABS: Troponin I 0.025 ng/ml
--- NOTE | 2024-07-25 03:30 | PTCARENOTE ---
Received patient from ED. Patient AAOx3. He was transferred directly from the stretcher to the bed. Patient admitted and oriented to the unit. VSS. Patient assessed. He verbalized an understanding to ring for all transfers. Call leach in reach. Bed
alarm placed for safety.
[2024-07-25 07:47] LABS: % Basophils 0.6 % (0-2); % Immature Granulocytes 0.3 % (0-0.5); % Lymphocytes 19.8 % (20.5-51.1); % Neutrophils 56.3 % (42.2-75.2); Absolute Eosinophils 0.3 10^3/uL (0-0.7); Absolute Lymphocytes 1.3 10^3/uL (1.2-3.4); Absolute Monocytes 1.3 10^3/uL (0.1-0.6); Absolute Neutrophils 3.8 10^3/uL (1.4-6.5); Hematocrit 39.2 % (39.0-52.0); Hemoglobin 12.1 g/dL (13.0-18.0); Mean Corp Hgb Conc. 30.9 g/dL (33.0-37.0); Mean Corpuscular Hgb 28.3 pg (27.0-31.0); Mean Corpuscular Volume 91.6 fL (80.0-94.0); Mean Platelet Volume 9.1 fL (7.4-10.4); Nucleated Red Blood Cells % 0 % (-); Platelet Count 245 10^3/uL (130-400); Red Blood Cell Count 4.28 10^6/uL (4.70-6.10); White Blood Cell Count 6.7 10^3/uL (4.8-10.8)
[2024-07-25 07:57] LABS: ALT (SGPT) 25 U/L (0-50); AST (SGOT) 24 U/L (17-59); Albumin 3.6 g/dl (3.5-5.0); Alkaline Phosphatase 99 U/L (38-126); Blood Urea Nitrogen 23 mg/dl (9-20); Calcium 8.7 mg/dl (8.4-10.2); Carbon Dioxide 37 mmol/L (22-30); Chloride 100 mmol/L (98-107); Estimated Creatinine Clearance 84 ml/min; Glucose 107 mg/dl (70-99); Sodium 140 mmol/L (135-145); Total Bilirubin 0.7 mg/dl (0.2-1.3); Total Protein 6.1 g/dl (6.3-8.2); eGFR > 60.00
[2024-07-25 07:59] LABS: Troponin I 0.024 ng/ml
--- NOTE | 2024-07-25 08:04 | W.PN.UPDATE ---
Update Note
Progress Note Update
I saw and evaluated the patient. I reviewed the resident�s note and agree with findings and plan as documented in the resident�s note.
c/o SOB and cough.
Gen: NAD, Awake and alert, appears chronically ill and malnourished
Eyes: EOMI, PERRLA, no scleral icterus.
Neck: supple.
CV: irreg/irreg, +S1/S2, no m/r/g.
Resp: slightly dec BS in the bases
Abd: +BS, soft, NT, ND
Skin: No rashes. 1-2+ B/L LE edema
Neuro: CN 2-12 intact, non-focal.
Psych: Normal mood and affect.
B/L LE U/S: No evidence of deep venous thrombosis bilaterally.
CXR: Findings highly suggestive of interstitial pulmonary edema pattern with bilateral pleural effusions.
Acute CHF exacerbation:
-proBNP 3200
-CXR above
-I/Os, daily wts
-change Lasix to 40mg IV BID
-trops NEG x 4
-Check echo
-c/s Cardiology
New onset atrial fibrillation:
-rate controlled
-Eliquis started (home ASA stopped)
Other problems:
h/o congenital coronary abnormality
h/o rheumatic fever as a child
Recent RSV infection
Essential hypertension: cont amlodipine
Hypercholesterolemia: cont statin
GERD: cont PPI
Anxiety/depression: cont Wellbutrin
h/o CVA: Holding ASA while on Eliquis
FULL/Eliquis
[2024-07-25] MEDS: NORVASC 5 MG PO (08:49)
[2024-07-25] MEDS: PROTONIX 40 MG PO (08:49)
[2024-07-25] MEDS: COLACE 100 MG PO ×2 (08:49→20:16)
[2024-07-25] MEDS: CRESTOR 20 MG PO (08:49)
[2024-07-25] MEDS: ELIQUIS PO (08:50)
--- NOTE | 2024-07-25 09:23 | W.PN.HOSP.TC ---
Today's Communication/Plan
-
Echo pending
Continue Lasix
Cardiology evaluation pending
Assessment / Plan
Assessment / Plan
#Acute CHF exacerbation
BNP elevated 3200
Chest x-ray shows interstitial pulmonary edema with bilateral pleural effusions
Continue to monitor ins and outs and daily weights
Echo pending
Cardiology consulted, pending
Venous ultrasound pending
IV Lasix 40 mg twice daily
#New onset A-fib
Eliquis started, stop aspirin
[id number]
#Febrile at urgent care on 07/24
Recent RSV infection
Influenza COVID pending
Robitussin for cough
#Essential hypertension
Continue amlodipine
#Hypercholesterolemia
Continue Crestor
#GERD
Continue Nexium
#Anxiety/depression
Continue Wellbutrin
#History of CVA
Start Eliquis hold aspirin
#History of congenital coronary abnormalities
#History of rheumatic fever as a child
#Recent RSV infection
Full code
DVT prophylaxis�Eliquis
Anticipated Discharge: 24 - 48 hours
Subjective/Interval History
-
Date of Service: July 25, 2024
Patient reports that overnight he had difficulty sleeping and significant shortness of breath. He says that it status quo from yesterday. He continues to have a mild cough which may be secondary to recent RSV infection. He has some mild nausea.
Objective Data
-
Labs:
Laboratory Results
07/25/24
07:22
WBC 6.7
Hgb 12.1 L
Hct 39.2
Plt Count 245
Sodium 140
Potassium 4.0
Chloride 100
Carbon Dioxide 37 H
BUN 23 H
Creatinine 0.7
Glucose 107 H
Calcium 8.7
Total Bilirubin 0.7
AST 24
ALT 25
Alkaline Phosphatase 99
Vital Signs:
Vital Signs
Temp Pulse Resp BP Pulse Ox
98.3 F 83 18 129/65 90
07/25/24 07:15 07/25/24 07:15 07/25/24 07:15 07/25/24 07:15 07/25/24 07:15
Review of Systems
-
History Source: Patient
Constitutional: Reports Fatigue and Sleep Disturbance
EENT: Reports No Symptoms Reported
Respiratory: Reports Cough and Trouble Breathing
Cardiac: Reports No Symptoms
Abdomen/GI: Reports Nausea
Genitourinary: Reports No Symptoms
Musculoskeletal: Reports Edema
Skin: Reports Rash
Physical Exam
-
General: Well Developed, Well Nourished, No Apparent Distress and Conversant
HEENT: Normocephalic and Atraumatic; Negative Moist Mucous Membranes
Respiratory: Crackles
Cardiac: S1/S2 and Irregular Rhythm
GI: Soft, Nontender, Nondistended and Normal Bowel Sounds
Musculoskeletal: No Clubbing, No Cyanosis, Edema, Right Lower Extrem and Edema, Left Lower Extrem
Skin: Warm and Dry
Neuro: AO x 3
Psych: Calm
Data Reviewed
-
Labs: Labs Reviewed by me and Discussed with Physician
Old Records: Reviewed
[2024-07-25] MEDS: WELLBUTRIN REGULAR RELEASE 100 MG PO ×2 (09:26→20:15)
--- NOTE | 2024-07-25 09:36 | CON.CAR ---
Consultation
Consultation Request
Date/Time Consultation Requested: 07/25/2024
Date/Time Consultation Performed: 07/25/2024
Reason for Consultation: New onset atrial fibrillation
Medical History
-
Chief Complaint: Shortness of breath
History of Present Illness:
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
several weeks as well as 15 pound weight gain and increased bilateral lower extremity edema.
He was diagnosed with RSV a week ago and went to urgent care and was prescribed steroid and inhaler but because he gets hyperactive on steroids he did not take it. He did not use inhaler due to sulfa allergy.
He did have a fever today. He denies chills currently. He has been having chest pressure with breathing.
His mother had heart disease.
He denies history of smoking. He quit drinking alcohol 4 years ago.
Past Medical History
Past Medical History: Asthma, CAD (Anomalous origin of left main from the right), CVA, HTN and Hypercholesterolemia
Social History
Tobacco: Non-Smoker
Alcohol: Former
Drug: None
Family History
Family History: Reviewed & Not Pertinent
Allergies / Home Medications
Allergy/AdvReac Type Severity Reaction Status Date / Time
ibuprofen Allergy Unknown Verified 07/24/24 20:27
midazolam [From Versed] Allergy Unknown Verified 07/24/24 20:27
Sulfa (Sulfonamide Allergy Unknown Verified 07/24/24 20:27
Antibiotics)
�Medication �Instructions �Recorded �Confirmed �Type
amoxicillin 875 mg-potassium 1 tab PO BID 7 days #14 tabs 06/23/22 Rx
clavulanate 125 mg tablet
amoxicillin 500 mg capsule 500 mg PO BID #10 caps 07/04/22 Rx
amoxicillin 500 mg-potassium 1 tab PO BID #14 tabs 01/11/24 Rx
clavulanate 125 mg tablet
(Augmentin)
clindamycin HCl 300 mg capsule 300 mg PO BID #20 caps 02/08/24 Rx
mupirocin 2 % topical ointment 1 applic topical BID #15 grams 02/08/24 Rx
doxycycline hyclate 100 mg capsule 100 mg PO BID 10 days #20 caps 06/19/24 Rx
cephalexin 500 mg capsule 500 mg PO Q6H 7 days #28 caps 06/22/24 Rx
Nexium 07/24/24 History
amlodipine 5 mg tablet 5 mg PO DAILY 07/24/24 07/24/24 History
aspirin 81 mg capsule 81 mg PO DAILY 07/24/24 07/24/24 History
bupropion HCl 100 mg tablet 100 mg PO BID 07/24/24 07/24/24 History
rosuvastatin 20 mg tablet (Crestor) 20 mg PO DAILY 07/24/24 07/24/24 History
Review of Systems
-
All other systems: Negative unless noted
Physical Exam
Vital Signs
Temp Pulse Resp BP Pulse Ox
98.3 F 83 18 129/65 90
07/25/24 07:15 07/25/24 07:15 07/25/24 07:15 07/25/24 07:15 07/25/24 07:15
Lab Results
07/25/24 07:22
07/25/24 07:22
Troponin I 0.024 ng/ml 07/25/24 07:22
Weu-B-Iaixblbmgrz Pept 3260 pg/ml 07/24/24 20:30
Physical Exam
General: Well Developed, Well Nourished and No Apparent Distress
HEENT: Normocephalic, Anicteric and Moist Mucous Membranes
Respiratory: Clear and Non Labored Respirations; Negative Wheezes
Cardiac: S1/S2 and Irregular Rhythm
GI: Soft, Non Tender, Non Distended and Normal Bowel Sounds
Musculoskeletal: No Clubbing, No Cyanosis and No Edema
Skin: Warm and Dry
Neuro: Awake, Alert, Oriented and AO x 3
Psych: Calm
Impression / Plan
-
84-year-old gentleman with a history of congenital coronary artery anomaly with left main originating from right, hypertension, asthma, GERD and hyperlipidemia who had a history of stroke with minimal residual deficit presented with new onset of
atrial fibrillation.
Atrial fibrillation
-Unclear duration of A-fib
-A-fib rates are well-controlled indicative of likely chronic etiology.
-Possible precipitation with recent viral infection/viral pneumonia.
-Patient is also noted to have mild congestive heart failure on the chest x-ray.
-Status post diuresis with lower extremity swelling improved.
-[id number] score is 6- age X2, CVA X2, hypertension, vascular disease
-Patient is started on Eliquis 5 mg twice a day. Continue for chronic stroke prevention.
-Currently in A-fib with rate controlled without any negative chronotropic agents.
-Patient's last EKG on 02/08/2024 shows normal sinus rhythm at 75 bpm.
-Plan for echo in a.m.
-Can consider CONTRERAS/DC cardioversion
Congestive heart failure
-Patient was in congestive heart failure with JVD, lower extremity edema and congestion on chest x-ray.
-CXR showed interstitial pulmonary edema with bilateral pleural effusions
-Status post diuresis
-Patient's respiratory status has improved significantly. He is feeling much better.
Hypertension
-On amlodipine 5 mg once a day
-Continue with adequate blood pressure control.
Data Reviewed
-
EKG: Tracing Personally Visualized and interpreted, Report Reviewed by me, Discussed with Physician and Discussed with Patient
Radiology: Image Personally Visualized and interpreted
Labs: Labs Reviewed by me
Old Records: Reviewed
[2024-07-25 13:56] LABS: Troponin I 0.021 ng/ml
--- NOTE | 2024-07-25 14:18 | CM ---
Initial assessment completed with pt at bedside.
Pt is an 84yr old male admitted with CHF exacerbation.
At baseline, pt lives with his in a 1 level home with 0 steps to enter.
Per pt, he is the primary caregiver for his who is bedridden.
Pt is indep at baseline and drives. Pt does claim that he falls 1-2x weekly.
Pt has a cane and shower chair.
Pt has no hx of SNF/VN.
Pt is open to VN. Pt says SNF is not an option due to his 's status. Pt says he used all their finances to pay for caregivers for his .
Pt does have a daughter and son, but says they both work and are not caregiver options for caretaker grounds.
PCP; Williams Mullen
Pharm; [facility]
PLAN; Home with [facility]
[2024-07-25] MEDS: ROBITUSSIN DM 10 ML PO (17:28)
[2024-07-25] MEDS: LASIX 40 MG IV (17:28)
[2024-07-25] MEDS: FLUSH (NSS) 2 FLUSH IV (17:29)
[2024-07-25 20:33] LABS: Troponin I 0.016 ng/ml
[2024-07-25] MEDS: TUMS CHEWABLE TABLET 400 MG PO (20:50)
[2024-07-25] MEDS: AMBIEN 10 MG PO (23:35)
[2024-07-26 00:26] VITALS: BP 159/89
[2024-07-26 03:10] VITALS: BP 120/58
[2024-07-26 05:12] VITALS: BMI 29.0
[2024-07-26 07:35] VITALS: BP 127/57
[2024-07-26] MEDS: CRESTOR 20 MG PO (07:59)
[2024-07-26] MEDS: ELIQUIS 5 MG PO ×2 (07:59→20:14)
[2024-07-26] MEDS: WELLBUTRIN REGULAR RELEASE 100 MG PO (07:59)
[2024-07-26] MEDS: PROTONIX 40 MG PO (07:59)
[2024-07-26] MEDS: COLACE 100 MG PO (08:00)
[2024-07-26] MEDS: NORVASC 5 MG PO (08:02)
[2024-07-26] MEDS: LASIX 40 MG IV ×2 (08:02→15:35)
[2024-07-26] MEDS: DUONEB 3 ML INH (09:34)
[2024-07-26] MEDS: DULCOLAX 10 MG RECTAL (10:16)
[2024-07-26 10:42] LABS: Urine Albumin Negative (Neg - Trace); Urine Bilirubin Negative (Negative); Urine Character Clear (Clear); Urine Glucose Negative (Negative); Urine Ketone Negative (Negative); Urine Leukocyte Negative (Negative); Urine Nitrite Negative (Negative); Urine Occult Blood 4+ (Negative); Urine Specific Gravity 1.005 (<1.030); Urine Urobilinogen Negative (Neg - 1+)
[2024-07-26 10:43] LABS: Urine Color Straw
--- NOTE | 2024-07-26 10:56 | VNURNOTE ---
Home Health Liaison met with patient at bedside to discuss [facility] nurse/therapy, visits, schedule and homebound status. Patient is agreeable and understands that visits at home will be 2-3 x per week to assess and teach medical management. [facility]
brochure provided with contact information. Patient is aware that [facility] will contact them for start of care in 1-2 days after discharge from .
[facility] referral completed and accepted in [facility].
[2024-07-26 10:57] LABS: Urine Bacteria Few (Negative); Urine Squamous Cell 0-2 /LPF (Few); Urine White Cell 0-2 /HPF (0-5)
--- NOTE | 2024-07-26 11:29 | W.PN.CD ---
Addendum entered and electronically signed by Donovan Thornton MD 07/26/24 17:15:
I saw and examined the patient.
The PRINCIPAL IOS DEVELOPER's note was reviewed and I agree with the note.
Comment: Seems to be improving. Plan for CONTRERAS/DCCV on 07/27/2024. Continue diuresis.
Original Note:
Today's Communication / Plan
-
Echocardiogram today
Continue diuresis
CONTRERAS/DCCV in a.m. if respiratory status stable
Impression / Plan
-
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
fibrillation.
Primary plating tank operator: Dr. Conklin
Acute hypoxic respiratory failure, in the setting of acute heart failure
-Wean oxygen as able, initially requiring 4 L, now down to 2L NC
-Denies smoking history but endorses significant smoke exposure and some asbestos exposure
Atrial fibrillation, new diagnosis
-Onset unknown
-Rates are well-controlled indicative of likely chronic etiology.
-Possible precipitation with recent viral infection/viral pneumonia.
-Oral anticoagulation: Apixaban 5 mg twice daily, started this hospitalization -- Case Mgmt will check cost
-[id number] score is 6 (age X2, CVA, hypertension, vascular disease)
-Currently in atrial fibrillation with rate control without any negative chronotropic agents.
-Patient's last EKG on 02/08/2024 shows normal sinus rhythm at 75 bpm.
-Echocardiogram today
-CONTRERAS/DCCV tomorrow if respiratory status stable, NPO after midnight
HFpEF, acute
-Respiratory status improving, continue furosemide 40 mg IV twice daily - this requires intensive monitoring
-CXR showed interstitial pulmonary edema with bilateral pleural effusions, on exam +JVD
-Case management to lezama SGLT2i
-Echocardiogram
-Heart failure education
-Trend daily weight, I/O, and BMP with diuresis
Hypertension, stable on amlodipine 5 mg daily, continue
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 Almaguer
Recent RSV infection
Prior CVA
SUBJECTIVE:
SOB improving. LE edema improving.
Physical Exam
Vital Signs/Labs
Vital Signs
Temp Pulse Resp BP Pulse Ox
97.3 F 83 20 127/57 96
07/26/24 07:35 07/26/24 09:39 07/26/24 09:39 07/26/24 08:02 07/26/24 10:54
07/25/24 07/26/24 07/27/24
06:59 06:59 06:59
Actual Weight 86.183 kg 83.869 kg
07/25/24 07:22
07/25/24 07:22
07/24/24
20:30
Koq-O-Qzpnchccubc Pept 3260
LAB Results
07/24/24 07/25/24 07/25/24
20:30 02:08 07:22
Troponin I 0.023 0.025 0.024
07/25/24 07/25/24
13:23 20:02
Troponin I 0.021 0.016
Physical Exam
Constitutional: No acute distress and Comfortable
EENT: Anicteric and Moist mucous membranes
Cardiovascular: Rhythm/rate is irregular and S1S2 is normal
Respiratory: Respiratory effort normal and Crackles Present
GI: Soft, Distention absent, Flat, Non tender and Normal bowel sounds
Neuro/Psych: AO x 3
Other: Skin (Warm and dry)
Data Reviewed
-
Date of Service: July 26, 2024
--- NOTE | 2024-07-26 12:00 | PTCARENOTE ---
Patient c/o to this RN that he is having bloody urine output, urine in urinal clear yellow but this RN witnessed small amount of blood on floor in bathroom and on tissues. Patient stated having burning with urination and blood when wiping. MD and
resident made aware, UA ordered per MD and sent to lab by this RN. Patient POX 93% on 2L, ROJAS with wheeze on exertion, PRN neb treatments added per MD.
[2024-07-26 13:56] LABS: % Basophils 0.6 % (0-2); % Immature Granulocytes 0.3 % (0-0.5); % Lymphocytes 12.8 % (20.5-51.1); % Monocytes 16.6 % (1.7-9.3); % Neutrophils 66.7 % (42.2-75.2); Absolute Eosinophils 0.2 10^3/uL (0-0.7); Absolute Lymphocytes 0.9 10^3/uL (1.2-3.4); Absolute Monocytes 1.2 10^3/uL (0.1-0.6); Absolute Neutrophils 4.6 10^3/uL (1.4-6.5); Hematocrit 39.4 % (39.0-52.0); Hemoglobin 12.7 g/dL (13.0-18.0); Mean Corp Hgb Conc. 32.2 g/dL (33.0-37.0); Mean Corpuscular Hgb 28.4 pg (27.0-31.0); Mean Corpuscular Volume 88.1 fL (80.0-94.0); Mean Platelet Volume 9.2 fL (7.4-10.4); Nucleated Red Blood Cells % 0 % (-); Platelet Count 260 10^3/uL (130-400); Red Blood Cell Count 4.47 10^6/uL (4.70-6.10); Red Cell Dist. Width 16.8 % (11.5-14.5); White Blood Cell Count 6.9 10^3/uL (4.8-10.8)
[2024-07-26 14:16] LABS: Blood Urea Nitrogen 24 mg/dl (9-20); Calcium 9.3 mg/dl (8.4-10.2); Carbon Dioxide 36 mmol/L (22-30); Chloride 93 mmol/L (98-107); Estimated Creatinine Clearance 75 ml/min; Glucose 102 mg/dl (70-99); Sodium 136 mmol/L (135-145); eGFR > 60.00
--- NOTE | 2024-07-26 14:19 | CM ---
Patient seen at bedside. echo today
CONTRERAS/DCCV in a.m. if respiratory status stable
CM consult completed-Spoke with Latonya pharmacist at [facility]
cost of Eliquis 5mg twice day - $534/mo
Jardiance 10mg daily $539/mo, Farxiga 10mg daily $533/mo
Patient refuses SNF - options discussed - [facility] preferred -accepted
PLAN: home with [facility] when medically stable
--- NOTE | 2024-07-26 14:45 | W.PN.HOSP.TC ---
Addendum entered and electronically signed by Eliseo Sommer MD 07/27/24 00:05:
Attending Addendum-
I saw and evaluated the patient. I reviewed the resident�s note and agree with findings and plan as documented in the resident�s note. Sub: Continues to have ROJAS. had one episode of hematuria now resolved. Denies CP palps. Full 12 point ROS reviewed
and negative except as documented Exam: Vitals reviewed in chart GEN-chronically ill appearing heart ireg irreg lungs b/l LL crackles abd soft obese NT ND LE +1 b/l LE edema
#Acute CHF exacerbation:
-proBNP 3200
-I/Os, daily wts 88kg->83kg, FR
-cont Lasix 40mg IV BID
-trops NEG
-echo 07/26-Normal biventricular size and systolic function without regional wall motion abnormality. LVEF 65-70%. Mild mitral regurgitation.
#New onset atrial fibrillation:
-rate controlled
-cont Eliquis new
-CONTRERAS/CV in am
-NPOpMN
# Hematuria
- check UA reflex
- resolved
- repeat CBC in am
- monitor closely while on Eliquis
# Acute Hypoxemic Respiratory Failure
- wean o2 for sats > 92%
Other problems:
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
h/o rheumatic fever as a child
Recent RSV infection
Essential hypertension: cont amlodipine
Hypercholesterolemia: cont crestor
GERD: cont esmoprazole
Anxiety/depression: cont Wellbutrin
Insomnia- ambien
h/o CVA: Holding ASA while on Eliquis
FULL/Eliquis
Time spent coordinating care, review of plan of care with resident, personally reviewed records in EMR, med rec, consults, notes, labs, radiology, d/w nursing � 55 mins
Original Note:
Today's Communication/Plan
-
Echo today
CONTRERAS/DCCV tomorrow; NPO after MN
wean O2 as tolerated
Continue IV lasix
Assessment / Plan
Assessment / Plan
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
weeks as well as 15 pound weight gain and increased bilateral lower extremity edema.
#Acute hypoxic respiratory failure with Acute Heart failure
--BNP elevated 3200( 07/24/2024)
--Chest x-ray shows interstitial pulmonary edema with bilateral pleural effusions
--Continue to monitor ins and outs and daily weights
--Currently stable on 2L NC O2; wean as tolerated
--Continue Iv lasix 40 mg BID
--Echo today
--Appreciate cardio input
#New onset A-fib; likely due to recent viral infection.
--Duration unknown
--Continue Eliquis 5mg BID, stop aspirin
--[id number] score is 6 (age X2, CVA, hypertension, vascular disease)
--CONTRERAS/DCCV tomorrow; NPO after MN per cardio
# Acute HFpEF
--07/24/24 CXR showed interstitial pulmonary edema with bilateral pleural effusions
--SOB improving
--CM to check proicing on SGLT2i per cardio
#Hematuria
--Hb stable
--UA 4+ for occult blood with few bacteria; culture pending
--recheck tomorrow; monitor at this time.
#Essential hypertension
--Continue amlodipine 5mg
#Hypercholesterolemia
--Continue Crestor; dose corrected today after confirming the home dose with pharmacist
#GERD
--Continue Nexium
#Anxiety/depression
--Continue Wellbutrin; dose corrected todayafter confirming the home dose with pharmacist
#History of CVA
--ContinueEliquis hold aspirin
#constipation
--Ordered daily bisacodyl supp(home regimen)
#History of congenital coronary abnormalities
#History of rheumatic fever as a child
#Recent RSV infection
Full code
DVT prophylaxis�Eliquis
Anticipated Discharge: Within 24 hours
Subjective/Interval History
-
Date of Service: July 26, 2024
c/o Blood in the urine and intermittent burning with urination
Objective Data
-
Labs:
Laboratory Results
07/26/24
13:34
WBC 6.9
Hgb 12.7 L
Hct 39.4
Plt Count 260
Sodium 136
Potassium 4.0
Chloride 93 L
Carbon Dioxide 36 H
BUN 24 H
Creatinine 0.7
Glucose 102 H
Calcium 9.3
Vital Signs:
Vital Signs
Temp Pulse Resp BP Pulse Ox
97.3 F 83 20 127/57 96
07/26/24 07:35 07/26/24 09:39 07/26/24 09:39 07/26/24 08:02 07/26/24 10:54
I&O
07/25/24 07/26/24 07/27/24
06:59 06:59 06:59
Intake Total 1610 / 1610
Output Total 200 / 200 950 / 950
Balance 1410 / 1410 -950 / -950
Review of Systems
-
History Source: Patient
Constitutional: Reports Fatigue
EENT: Reports No Symptoms Reported
Respiratory: Reports Trouble Breathing (Improved)
Cardiac: Reports No Symptoms
Abdomen/GI: Reports No Symptoms
Genitourinary: Reports Dysuria and Dark Urine
Musculoskeletal: Reports Edema
Skin: Reports No Symptoms
Neuro: Reports No Symptoms
Physical Exam
-
General: Well Developed, Well Nourished, No Apparent Distress and Conversant
HEENT: Normocephalic, Atraumatic and Moist Mucous Membranes
Respiratory: Crackles and Non Labored Respirations
Cardiac: S1/S2 and Irregular Rhythm
GI: Soft, Nontender, Nondistended and Normal Bowel Sounds
Musculoskeletal: No Clubbing, No Cyanosis, Edema, Right Lower Extrem and Edema, Left Lower Extrem
Skin: Warm and Dry
Neuro: AO x 3
Psych: Calm
Data Reviewed
-
Labs: Labs Reviewed by me, Discussed with Physician and Discussed with Patient
[2024-07-26 15:55] VITALS: BP 121/65
[2024-07-26 17:57] VITALS: BMI 29.0
[2024-07-26 19:21] VITALS: BP 105/56
[2024-07-26] MEDS: COLACE PO (20:14)
[2024-07-26] MEDS: WELLBUTRIN SR (12 hour sustained release) 150 MG PO (20:14)
[2024-07-26] MEDS: AMBIEN 10 MG PO (21:33)
[2024-07-26 23:24] VITALS: BP 128/70
[2024-07-27] VITALS (9 sets, daily range): BP systolic 90–146; BP diastolic 58–79; BMI 28.6
--- NOTE | 2024-07-27 07:10 | W.PN.HOSP.TC ---
Addendum entered and electronically signed by Eliseo Sommer MD 07/27/24 23:04:
Attending Addendum-
I saw and evaluated the patient. I reviewed the resident�s note and agree with findings and plan as documented in the resident�s note. Sub: seen post CONTRERAS/CV. 'it didn't work doc!' States he is hungry. Less SOB. Denies CP palps. Full 12 point ROS
reviewed and negative except as documented Exam: Vitals reviewed in chart GEN-NAD heart ireg irreg lungs b/l LL crackles abd soft obese NT ND LE +1 b/l LE edema
#Acute CHF exacerbation:
-proBNP 3200
-I/Os, daily wts 88kg->82kg, FR
-cont Lasix 40mg IV BID-transition to PO in AM
-trops NEG
-echo 07/26-Normal biventricular size and systolic function without regional wall motion abnormality. LVEF 65-70%. Mild mitral regurgitation.
#New onset atrial fibrillation:
-rate controlled
-transition Eliquis to pradaxa due to cost
-CONTRERAS/CV-unsuccessful DCCV x 3 shocks
# Hematuria
- resolved
- repeat CBC in am
- monitor closely while on pradaxa
# Acute Hypoxemic Respiratory Failure
-resolved now on RA
Other problems:
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
h/o rheumatic fever as a child
Recent RSV infection
Essential hypertension: cont amlodipine
Hypercholesterolemia: cont crestor
GERD: cont esmoprazole
Anxiety/depression: cont Wellbutrin
Insomnia- ambien
h/o CVA: Holding ASA while on Eliquis
FULL/Pradaxa
Dispo DC home in am
Time spent coordinating care, review of plan of care with resident, personally reviewed records in EMR, med rec, consults, notes, labs, radiology, d/w nursing and friend� 53 mins
Original Note:
Today's Communication/Plan
-
Continue Iv lasix 40 mg BID; plan to change to po tomorrow
pradaxa 150mg bid by cardio
CONTRERAS/DCCV today
Assessment / Plan
Assessment / Plan
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
weeks as well as 15 pound weight gain and increased bilateral lower extremity edema.
#Acute hypoxic respiratory failure with Acute Heart failure
--hypoxia resolved
--BNP of 3200( 07/24/2024)
--Chest x-ray shows interstitial pulmonary edema with bilateral pleural effusions
--Continue to monitor ins and outs and daily weights
--weaned from supplemental O2
--Continue Iv lasix 40 mg BID; plan to change to po tomorrow
--Echo 07/26: Normal biventricular size and systolic function without regional wall motion abnormality. LVEF 65-70%. Mild mitral regurgitation. Left Atrial enlargement. No evidence of PH.
#New onset A-fib; likely due to recent viral infection.
--Duration unknown; rate controlled
--d/c Eliquis 5mg BID due to lack of coverage by his insurance, stop aspirin; started on pradaxa 150mg bid by cardio
--[id number] score is 6 (age X2, CVA, hypertension, vascular disease)
--CONTRERAS/DCCV today
# Acute HFpEF
--07/24/24 CXR showed interstitial pulmonary edema with bilateral pleural effusions
--SOB improving; on 2 L NC due to ROJAS
--CM notes reviewed: [employer] of SGLT2i: over $500 per month
#Hematuria
--resolved
--Hb stable
--07/26:UA 4+ for occult blood with few bacteria; culture pending
#Essential hypertension
--Continue amlodipine 5mg
#Hypercholesterolemia
--Continue Crestor home dose
#GERD
--Continue Nexium
#Anxiety/depression
--Continue Wellbutrin home dose
#History of CVA
--Continue pradaxa(switched from eliquis) hold aspirin
#constipation
--BM yesterday
--daily bisacodyl supp(home regimen)
#History of congenital coronary abnormalities
#History of rheumatic fever as a child
#Recent RSV infection
Full code
DVT prophylaxis�Eliquis
DISPO: Patient refused SNF - options discussed by CM - [facility] preferred;accepted
Anticipated Discharge: 24 - 48 hours
Subjective/Interval History
-
Date of Service: July 27, 2024
Offers no new complaints. He is a little anxious for procedure today. Denies any trouble breathing and not on supplemental O2 anymore.
Objective Data
-
Labs:
Laboratory Results
07/27/24
06:17
WBC Pending
Hgb Pending
Hct Pending
Plt Count Pending
Sodium Pending
Potassium Pending
Chloride Pending
Carbon Dioxide Pending
BUN Pending
Creatinine Pending
Glucose Pending
Calcium Pending
Vital Signs:
Vital Signs
Temp Pulse Resp BP Pulse Ox
98.0 F 83 17 132/70 91
07/27/24 03:07 07/27/24 03:07 07/27/24 03:07 07/27/24 03:07 07/27/24 04:01
I&O
07/26/24 07/27/24 07/28/24
06:59 06:59 06:59
Intake Total 1610 / 1610
Output Total 200 / 200 1250 / 1250
Balance 1410 / 1410 -1250 / -1250
Review of Systems
-
History Source: Patient
Constitutional: Reports No Symptoms
EENT: Reports No Symptoms Reported
Cardiac: Reports No Symptoms
Abdomen/GI: Reports No Symptoms
Genitourinary: Reports No Symptoms
Musculoskeletal: Reports Edema (1+ b/l LE)
Skin: Reports No Symptoms
Neuro: Reports No Symptoms
Psych: Reports Anxious
Physical Exam
-
General: Well Nourished, No Apparent Distress, Conversant and Appears Chronically Ill
HEENT: Normocephalic, Atraumatic and Moist Mucous Membranes
Respiratory: Crackles and Non Labored Respirations
Cardiac: S1/S2 and Irregular Rhythm
GI: Soft, Nontender, Nondistended and Normal Bowel Sounds
Musculoskeletal: No Clubbing, No Cyanosis, Edema, Right Lower Extrem and Edema, Left Lower Extrem
Skin: Warm and Dry
Neuro: AO x 3
Psych: Anxious
Data Reviewed
-
Labs: Labs Reviewed by me, Discussed with Physician and Discussed with Patient
Laboratory Results
-
07/27/24 06:17
07/27/24 06:17
Laboratory Results
Total Bilirubin 0.7 mg/dl (0.2-1.3) 07/25/24 07:22
AST 24 U/L (17-59) 07/25/24 07:22
ALT 25 U/L (0-50) 07/25/24 07:22
Alkaline Phosphatase 99 U/L (38-126) 07/25/24 07:22
Troponin I 0.016 ng/ml 07/25/24 20:02
--- NOTE | 2024-07-27 07:57 | W.PN.CD ---
Today's Communication / Plan
-
patient does not have coverage for eliquis
-change to pradaxa 150mg bid ( I reviewed [employer] with patient, $65 per month at [facility])
CONTRERAS/DCCV today
continue IV lasix, and assess for PO tomorrow
Impression / Plan
-
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
fibrillation.
Primary credit support counselor: Dr. Conklin
Acute hypoxic respiratory failure, in the setting of acute heart failure
-improved with diuresis
Atrial fibrillation, new diagnosis
-Onset unknown
-Rates are well-controlled indicative of likely chronic etiology. Not on AV vikash agent.
-Possible precipitation with recent viral infection/viral pneumonia.
-Oral anticoagulation: patient does not have coverage for eliquis
-change to pradaxa 150mg bid ( I reviewed [employer] with patient, $65 per month at [facility])
-[id number] score is 6 (age X2, CVA, hypertension, vascular disease)
-TTE: EF 65-70%, no sig valve disease
-CONTRERAS/DCCV today
HFpEF, acute
-Respiratory status improving, continue furosemide 40 mg IV twice daily - this requires intensive monitoring of tele and labs
-CXR showed interstitial pulmonary edema with bilateral pleural effusions, on exam +JVD
-Case management to lezama SGLT2i: over $500 per month
Hypertension, stable on amlodipine 5 mg daily, continue
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 Almaguer
Recent RSV infection
Prior CVA
SUBJECTIVE:
SOB improving. LE edema improving.
Physical Exam
Vital Signs/Labs
Vital Signs
Temp Pulse Resp BP Pulse Ox
98.3 F 77 17 127/60 95
07/27/24 07:45 07/27/24 07:45 07/27/24 07:45 07/27/24 07:45 07/27/24 07:45
07/26/24 07/27/24 07/28/24
06:59 06:59 06:59
Actual Weight 83.869 kg 82.69 kg
07/24/24
20:30
Lti-Z-Uowumtrawco Pept 3260
LAB Results
07/24/24 07/25/24 07/25/24
20:30 02:08 07:22
Troponin I 0.023 0.025 0.024
07/25/24 07/25/24
13:23 20:02
Troponin I 0.021 0.016
Physical Exam
Constitutional: No acute distress
EENT: Moist mucous membranes
Cardiovascular: Systolic murmur absent, Rhythm/rate is irregular, Pedal edema present and JVD present
Respiratory: Respiratory effort normal and Lungs clear to auscul.
Neuro/Psych: AO x 3
Data Reviewed
-
Date of Service: July 27, 2024
EKG: Other (Tele: Afib 70s-80s)
Labs: Labs Reviewed by me
[2024-07-27 07:58] LABS: Hematocrit 40.3 % (39.0-52.0); Hemoglobin 12.9 g/dL (13.0-18.0); Mean Corpuscular Hgb 28.2 pg (27.0-31.0); Mean Platelet Volume 9.6 fL (7.4-10.4); Platelet Count 273 10^3/uL (130-400); Red Blood Cell Count 4.58 10^6/uL (4.70-6.10); Red Cell Dist. Width 16.6 % (11.5-14.5); White Blood Cell Count 6.3 10^3/uL (4.8-10.8)
[2024-07-27 08:20] LABS: Blood Urea Nitrogen 21 mg/dl (9-20); Calcium 8.7 mg/dl (8.4-10.2); Carbon Dioxide 35 mmol/L (22-30); Chloride 98 mmol/L (98-107); Estimated Creatinine Clearance 75 ml/min; Glucose 94 mg/dl (70-99); Sodium 138 mmol/L (135-145); eGFR > 60.00
[2024-07-27] MEDS: PRADAXA 150 MG PO ×2 (08:30→21:35)
[2024-07-27] MEDS: NORVASC 5 MG PO (08:31)
[2024-07-27] MEDS: PROTONIX 40 MG PO (08:31)
[2024-07-27] MEDS: CRESTOR 10 MG PO (08:31)
[2024-07-27] MEDS: COLACE 100 MG PO ×2 (08:31→21:35)
[2024-07-27] MEDS: DULCOLAX 10 MG RECTAL (08:31)
[2024-07-27] MEDS: WELLBUTRIN SR (12 hour sustained release) 150 MG PO ×2 (08:31→21:35)
[2024-07-27] MEDS: LASIX 40 MG IV ×2 (08:31→15:10)
--- NOTE | 2024-07-27 10:36 | PTCARENOTE ---
Patient to garden labourer for CONTRERAS/cardioversion, chart taken with transport.
--- NOTE | 2024-07-27 12:26 | ITS.CL.CARDI ---
[employer] Sales Consultant - Cardioversion
Cardioversion
Procedure Report:
Date of Procedure: July 27 2024
Procedure: Cardioversion
Indication: Symptomatic atrial fibrillation
Performing Physician: Chad Chavez DO, FACC
Technique: The patient was brought to the holding area. Signed informed consent was obtained. A time out was called and performed. The patient was anesthetized by the anesthesia service. Anticoagulation status was reviewed and appropriate. R2 pads
were placed anteriorly and posteriorly. Following successful CONTRERAS< a 200 J synchronized biphasic shock was given which failed to convert to normal sinus rhythm. He subsequently received 300 J and 360 J shocks which were unsuccessful in converting to
sinus rhythm. There were no complications.
Conclusion: Unsuccessful cardioversion from atrial fibrillation.
Recommendation: Routine post cardioversion care. Continue intermission coordinator anticoagulation. Reviewed with primary cardiology team.
--- NOTE | 2024-07-27 14:57 | CM ---
Patient seen at bedside.
CONTRERAS today
Unsuccessful cardioversion from atrial fibrillation.
[facility]
PLAN: Home with [facility] when medically stable
[2024-07-27] MEDS: BENADRYL 6.25 MG IV (23:56)
[2024-07-28 03:28] VITALS: BP 122/63
[2024-07-28 06:00] VITALS: BMI 28.0
--- NOTE | 2024-07-28 07:01 | W.PN.HOSP.TC ---
Addendum entered and electronically signed by Eliseo Sommer MD 07/28/24 23:03:
Attending Addendum-
I saw and evaluated the patient. I reviewed the resident�s note and agree with findings and plan as documented in the resident�s note. Sub: feels much less SOB denies CP palps wants to go home. Full 12 point ROS reviewed and negative except as
documented Exam: Vitals reviewed in chart GEN-NAD heart irreg irreg lungs decreased BS @ bases abd soft obese NT ND LE +1 b/l LE edema
#Acute CHF exacerbation:
-resolved
-proBNP 3200
-I/Os, daily wts 88kg->82kg, FR
-Lasix 40mg IV BID-transitioned to PO
-trops NEG
-echo 07/26-Normal biventricular size and systolic function without regional wall motion abnormality. LVEF 65-70%. Mild mitral regurgitation.
-d/w cards stable for DC
#New onset atrial fibrillation:
-rate controlled
-transitioned back to Eliquis from Pradaxa due to patient preference
-CONTRERAS/CV-unsuccessful DCCV x 3 shocks
# Hematuria
- resolved
- repeat CBC in am
- monitor closely while on NOAC
# Acute Hypoxemic Respiratory Failure
-resolved now on RA
Other problems:
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
h/o rheumatic fever as a child
Recent RSV infection
Essential hypertension: cont amlodipine
Hypercholesterolemia: cont crestor
GERD: cont esmoprazole
Anxiety/depression: cont Wellbutrin
Insomnia- ambien
h/o CVA: Holding ASA while on Eliquis
FULL/Pradaxa
Dispo DC home
Time spent coordinating care, DC planning, review of DC plan of care with resident, transition of care, review of records, med rec/scripts sent electronically, consults, notes, d/w consultants, nursing, cards and CM� 32mins
Original Note:
Today's Communication/Plan
-
Transition lasix to PO 40 mg daily
Restart Eliquis per patient's request
BMP in 1 week
d/c home with VN today
Assessment / Plan
Assessment / Plan
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
weeks as well as 15 pound weight gain and increased bilateral lower extremity edema.
#Acute hypoxic respiratory failure with Acute Heart failure
--hypoxia resolved; weaned from supplemental O2 on 07/26/24
--BNP of 3200( 07/24/2024)
--Chest x-ray shows interstitial pulmonary edema with bilateral pleural effusions
-- Weight 7 kg is down since day of admission.
--transition Iv lasix 40 mg BID to Lasix 40 mg p.o.; order placed by cardiology
--Echo 07/26: Normal biventricular size and systolic function without regional wall motion abnormality. LVEF 65-70%. Mild mitral regurgitation. Left Atrial enlargement. No evidence of PH.
--BMP in one week
#New onset A-fib; likely due to recent viral infection.
--Duration unknown; rate controlled
--Restart Eliquis 5mg BID;discontinue pradaxa 150mg bid ; patient insisted on going back to Eliquis and willing to pay the cost.
--[id number] score is 6 (age X2, CVA, hypertension, vascular disease)
--CONTRERAS/DCCV; unsuccessful on 07/27/24
# Acute HFpEF
--07/24/24 CXR showed interstitial pulmonary edema with bilateral pleural effusions
--SOB improving; on 2 L NC due to ROJAS
--CM notes reviewed: lezama of SGLT2i: over $500 per month
#Hematuria
--resolved
--Hb stable
--07/26:UA 4+ for occult blood with few bacteria; culture pending
#Essential hypertension
--Continue amlodipine 5mg
#Hypercholesterolemia
--Continue Crestor home dose
#GERD
--Continue Nexium
#Anxiety/depression
--Continue Wellbutrin home dose
#History of CVA
--Continue eliquis switched from pradaxa hold aspirin
#constipation
--BM yesterday
--daily bisacodyl supp(home regimen)
#History of congenital coronary abnormalities
#History of rheumatic fever as a child
#Recent RSV infection
Full code
DVT prophylaxis�Eliquis
DISPO: Patient refused SNF - options discussed by CM - VN preferred;accepted
Anticipated Discharge: Today
Subjective/Interval History
-
Date of Service: July 28, 2024
Offers no new complaints. States he is feeling much better today and would like to go home.
Objective Data
-
Labs:
Laboratory Results
07/28/24
06:09
WBC Pending
Hgb Pending
Hct Pending
Plt Count Pending
Sodium Pending
Potassium Pending
Chloride Pending
Carbon Dioxide Pending
BUN Pending
Creatinine Pending
Glucose Pending
Calcium Pending
Vital Signs:
Vital Signs
Temp Pulse Resp BP Pulse Ox
98.7 F 78 18 122/63 96
07/28/24 03:28 07/28/24 03:28 07/28/24 03:28 07/28/24 03:28 07/28/24 04:25
I&O
07/27/24 07/28/24 07/29/24
06:59 06:59 06:59
Intake Total 540 / 960 420 / 420
Output Total 1250 / 1250 525 / 925 400 / 400
Balance -1250 / -1250
Review of Systems
-
History Source: Patient
Constitutional: Reports No Symptoms
EENT: Reports No Symptoms Reported
Cardiac: Reports No Symptoms
Abdomen/GI: Reports No Symptoms
Genitourinary: Reports No Symptoms
Skin: Reports No Symptoms
Neuro: Reports No Symptoms
Physical Exam
-
General: Well Nourished, No Apparent Distress, Conversant and Appears Chronically Ill
HEENT: Normocephalic, Atraumatic and Moist Mucous Membranes
Respiratory: Clear to Auscultation and Non Labored Respirations
Cardiac: S1/S2 and Irregular Rhythm
GI: Soft, Nontender, Nondistended and Normal Bowel Sounds
Musculoskeletal: No Clubbing, No Cyanosis, Edema, Right Lower Extrem (1+) and Edema, Left Lower Extrem (Trace)
Skin: Warm and Dry
Neuro: AO x 3
Psych: Calm
Data Reviewed
-
Labs: Labs Reviewed by me, Discussed with Physician and Discussed with Patient
[2024-07-28 07:42] LABS: Hematocrit 39.6 % (39.0-52.0); Hemoglobin 12.6 g/dL (13.0-18.0); Mean Corp Hgb Conc. 31.8 g/dL (33.0-37.0); Mean Corpuscular Hgb 28.1 pg (27.0-31.0); Mean Corpuscular Volume 88.2 fL (80.0-94.0); Platelet Count 265 10^3/uL (130-400); Red Blood Cell Count 4.49 10^6/uL (4.70-6.10); Red Cell Dist. Width 16.7 % (11.5-14.5)
[2024-07-28 08:13] LABS: Blood Urea Nitrogen 20 mg/dl (9-20); Calcium 8.7 mg/dl (8.4-10.2); Carbon Dioxide 30 mmol/L (22-30); Chloride 96 mmol/L (98-107); Estimated Creatinine Clearance 65 ml/min; Glucose 100 mg/dl (70-99); Potassium 3.6 mmol/L (3.5-5.1); Sodium 136 mmol/L (135-145); eGFR > 60.00
[2024-07-28 08:17] VITALS: BP 146/78
[2024-07-28] MEDS: CRESTOR 10 MG PO (08:43)
[2024-07-28] MEDS: COLACE 100 MG PO (08:43)
[2024-07-28] MEDS: PRADAXA 150 MG PO (08:43)
[2024-07-28] MEDS: LASIX 40 MG IV (08:44)
[2024-07-28] MEDS: DULCOLAX 10 MG RECTAL (08:44)
[2024-07-28] MEDS: NORVASC 5 MG PO (08:45)
[2024-07-28] MEDS: PROTONIX 40 MG PO (08:45)
[2024-07-28] MEDS: WELLBUTRIN SR (12 hour sustained release) 150 MG PO (08:45)
--- NOTE | 2024-07-28 09:39 | W.PN.CD ---
Today's Communication / Plan
-
patient wants to pay out of pocket for eliquis 5mg bid
transition to lasix 40mg PO daily
BMP in one week
discharge planning
we will arrange for follow up with us
Impression / Plan
-
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
fibrillation.
Primary natural foods clerk: Dr. Conklin
Acute hypoxic respiratory failure, in the setting of acute heart failure
-improved with diuresis
Atrial fibrillation, new diagnosis, suspected persistent
-Onset unknown
-Rates are well-controlled indicative of likely chronic etiology. Not on AV vikash agent.
-Possible precipitation with recent viral infection/viral pneumonia.
-[id number] score is 6 (age X2, CVA, hypertension, vascular disease)
-TTE: EF 65-70%, no sig valve disease
-DCCV was unsuccessful on 07/28/24
-will discuss PVI as outpatient
-patient wants to pay out of pocket for eliquis 5mg bid
HFpEF, acute, improved s/p IV lasix
-Case management to lezama SGLT2i: over $500 per month
-transition to lasix 40mg PO daily
Hypertension, stable on amlodipine 5 mg daily, continue
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 Almaguer; continue statin
Recent RSV infection
Prior CVA
SUBJECTIVE:
SOB and edema resolved
Physical Exam
Vital Signs/Labs
Vital Signs
Temp Pulse Resp BP Pulse Ox
98.5 F 69 16 146/78 95
07/28/24 08:17 07/28/24 08:45 07/28/24 08:17 07/28/24 08:45 07/28/24 08:17
07/27/24 07/28/24 07/29/24
06:59 06:59 06:59
Actual Weight 82.69 kg 81.012 kg
07/28/24 06:09
07/28/24 06:09
07/24/24
20:30
Mok-L-Kohrqlpujyv Pept 3260
LAB Results
07/25/24 07/25/24
13:23 20:02
Troponin I 0.021 0.016
Physical Exam
Constitutional: No acute distress and Comfortable
EENT: Moist mucous membranes
Cardiovascular: Pedal edema is absent, JVD pressure is normal, Systolic murmur absent and Rhythm/rate is irregular
Respiratory: Respiratory effort normal
Neuro/Psych: AO x 3
Data Reviewed
-
Date of Service: July 28, 2024
EKG: Other (Tele: A fib 70s)
Labs: Labs Reviewed by me
--- NOTE | 2024-07-28 11:24 | CM ---
Addendum entered by Arleen Donohue 07/28/24 11:43:
IMM explained & signed. In chart
Original Note:
Met with patient
Coupon given to patient for Eliquis
[facility]
PLAN: Home with [facility]
daughter to transport
[2024-07-28 11:30] VITALS: BP 106/60
[2024-07-28 15:21] VITALS: BP 132/65
--- NOTE | 2024-07-28 17:12 | W.DCSUMMARY ---
Addendum entered and electronically signed by Eliseo Sommer MD 07/28/24 23:03:
Read, reviewed, and agree. See same day progress note for additional details.
Leandro Sommer MD
Original Note:
Documented by User: Gilberto Hobbs MD, Resident 07/28/24 18:25
Discharge Summary
Discharge Data
Date of Admission: 07/24/24
Date of Discharge: 07/28/24
-
Pending Results: No
Hospital Course
Discharging Physician : Gilberto Hobbs MD ; Eliseo Haddad MD
Disposition : Home
Primary care physician : Williams Mullen
Principal Discharge diagnosis : Acute hypoxic respiratory failure with Acute Heart failure, New onset A-fib, Acute HFpEF,
Chronic Discharge diagnosis : Essential hypertension, hypercholesteremia, GERD, anxiety/depression, history of CVA, constipation, history of congenital coronary abnormalities, history of rheumatic fever as a child, recent RSV infection
Hospital Course : 84-year-old male with past medical history of congenital coronary artery abnormality, asthma, hypertension, hypercholesteremia, GERD, CVA presentied with shortness of breath for the past several weeks as well as 15 pound weight
gain and increased bilateral lower extremity edema.
He was diagnosed with RSV a week before coming to the and went to urgent care and was prescribed steroid and inhaler but because he gets hyperactive on steroids he did not take it. Plan further evaluation BNP was found to be 3200, he was given IV
Lasix 60 mg. He was also found to have new onset atrial fibrillation with [id number] score of 6. Possible precipitation with recent viral infection/viral pneumonia. He was started on Eliquis and plan was made with cardiology to do echo and later
cardioversion. Eliquis was changed to Pradaxa due to lack of coverage of Eliquis however after 1 day patient requested to switch back to Eliquis and states he is willing to pay the cost [id number]. His IV Lasix was eventually transitioned to
p.o. and he was discharged on Lasix 40 mg p.o. daily. Patient had an unsuccessful cardioversion and recommendation was made to continue long-term anticoagulation. He was discharged on Eliquis 5 mg twice daily. He was also instructed to
discontinue ASA 81 mg per cardio recommendations. He will follow-up with cardiology outpatient and appointment was made before discharge. He was also instructed to follow-up with PCP within 1 week. branch sales manager checked the lezama of SGLT2i however
the cost is more than $500/month at this time. Patient was stable at the time of discharge. Paper prescription was provided to the patient to complete BMP in 1 week and also paper prescription of medication per patient's request was handed over.
Important imaging findings : 07/24/24 CR Chest - 2 Views: findings highly suggestive of interstitial pulmonary edema pattern with bilateral pleural effusions
Procedure findings : US Periph Venous LOWER Ext Kt:No evidence of deep venous thrombosis bilaterally.
Cardioversion: The patient was brought to the holding area. Signed informed consent was obtained. A time out was called and performed. The patient was anesthetized by the anesthesia service. Anticoagulation status was reviewed and appropriate. R2
pads were placed anteriorly and posteriorly. Following successful CONTRERAS< a 200 J synchronized biphasic shock was given which failed to convert to normal sinus rhythm. He subsequently received 300 J and 360 J shocks which were unsuccessful in
converting to sinus rhythm. There were no complications.
07/24/24 EKG: ATRIAL FIBRILLATION WITH A COMPETING JUNCTIONAL PACEMAKER
07/26/24 ECHO: CONCLUSIONS
Normal biventricular size and systolic function without regional wall motion
abnormality. LVEF 65-70%.
Mild mitral regurgitation.
Left atrial enlargement.
Mild tricuspid regurgitation with no evidence of pulmonary hypertension.
Pleural effusion is present.
No prior study available for comparison
Transesophageal Echo Report: Normal left ventricular chamber size myocardial thickness and systolic
function. Left ventricular ejection fraction 60-65%.
No left atrial appendage thrombus. No spontaneous echo contrast.
Mild tricuspid regurgitation.
Compared to [facility] echo from Jul 26 2024, no significant change.
Following CONTRERAS, the patient underwent cardioversion
07/28 ekg: ATRIAL FIBRILLATION
LEFT AXIS DEVIATION
PROLONGED QT
ABNORMAL ECG
Discharge Plan
-
Patient Disposition: Home (Routine Discharge)
Discharge Diagnosis/Procedures: Acute hypoxic respiratory failure with Acute Heart failure, New onset A-fib, Acute HFpEF, essential hypertension, hypercholesteremia, GERD, anxiety/depression, history of CVA, constipation, history of congenital
coronary abnormalities, history of rheumatic fever as a child, recent RSV infection
Condition: Good
Diet: Low Cholesterol
Activity: No restrictions
Driving Restrictions: As prior to admission
Bathing Restrictions: None
Other Services: VN
Instructions: *PCP/Other Drop Press Hand Heart Failure Instructions
Referrals:
Jossy Allison CRNP [Specified Professional Personl] - 08/13/24 11:20 am
Williams Mullen MD [Family Provider] - in less than 1 week
Additional Discharge Medication Instructions: Take Lasix 40 mg 1 tablet by mouth daily
Take Eliquis 5 mg 1 tablet by mouth twice daily
Complete blood work' BMP' in 1 week and follow-up with PCP and cardiology
Discontinue aspirin 81 mg capsule.
Prescriptions:
New
Eliquis 5 mg Tablet
5 mg PO BID Qty: 60 0RF
furosemide 40 mg Tablet
40 mg PO DAILY Qty: 30 0RF
Continued
amlodipine 5 mg Tablet
5 mg PO DAILY
zolpidem [Ambien] 10 mg Tablet
10 mg PO HS
bisacodyl 10 mg Suppository
10 mg DC DAILY
docusate sodium [Colace] 100 mg Capsule
100 mg PO BID
esomeprazole magnesium [Nexium] 20 mg Capsule,Delayed Release(Dr/Ec)
20 mg PO DAILY
coenzyme Q10 [CoQ-10] 100 mg Capsule
100 mg PO DAILY
rosuvastatin 10 mg tablet
10 mg PO DAILY
bupropion HCl 150 mg tablet extended release 24 hr
150 mg PO BID
Discontinued
aspirin 81 mg Capsule
81 mg PO HS
Discharge Orders:
Discharge Patient (As Directed); Ordered 07/28/24
Ordered By: Gilberto Hobbs
Discharge Date and Time
Discharge Date/Time: 07/28/24 16:33
Print Language: PALAUAN

Documented by User: Eliseo Sommer MD 07/28/24 23:00
Discharge Summary
Discharge Data
Date of Admission: 07/24/24
Date of Discharge: 07/28/24
Discharge Plan
-
Patient Disposition: Home (Routine Discharge)
Discharge Diagnosis/Procedures: Acute hypoxic respiratory failure with Acute Heart failure, New onset A-fib, Acute HFpEF, essential hypertension, hypercholesteremia, GERD, anxiety/depression, history of CVA, constipation, history of congenital
coronary abnormalities, history of rheumatic fever as a child, recent RSV infection
Condition: Good
Diet: Low Cholesterol
Activity: No restrictions
Driving Restrictions: As prior to admission
Bathing Restrictions: None
Other Services: VN
Instructions: *PCP/Other Drop Press Hand Heart Failure Instructions
Referrals:
Jossy Allison CRNP [Specified Professional Personl] - 08/13/24 11:20 am
Williams Mullen MD [Family Provider] - in less than 1 week
Additional Discharge Medication Instructions: Take Lasix 40 mg 1 tablet by mouth daily
Take Eliquis 5 mg 1 tablet by mouth twice daily
Complete blood work' BMP' in 1 week and follow-up with PCP and cardiology
Discontinue aspirin 81 mg capsule.
Prescriptions:
New
Eliquis 5 mg Tablet
5 mg PO BID Qty: 60 0RF
furosemide 40 mg Tablet
40 mg PO DAILY Qty: 30 0RF
Continued
amlodipine 5 mg Tablet
5 mg PO DAILY
zolpidem [Ambien] 10 mg Tablet
10 mg PO HS
bisacodyl 10 mg Suppository
10 mg DC DAILY
docusate sodium [Colace] 100 mg Capsule
100 mg PO BID
esomeprazole magnesium [Nexium] 20 mg Capsule,Delayed Release(Dr/Ec)
20 mg PO DAILY
coenzyme Q10 [CoQ-10] 100 mg Capsule
100 mg PO DAILY
rosuvastatin 10 mg tablet
10 mg PO DAILY
bupropion HCl 150 mg tablet extended release 24 hr
150 mg PO BID
Discontinued
aspirin 81 mg Capsule
81 mg PO HS
Discharge Orders:
Discharge Patient (As Directed); Ordered 07/28/24
Ordered By: Gilberto Hobbs
Discharge Date and Time
Discharge Date/Time: 07/28/24 16:33
Print Language: PALAUAN
--- NOTE | 2024-07-29 10:36 | W.HF.CON ---
Heart Failure
- LV Function
Left ventricular function study result: LV Ejection fraction >/= 50%
Ejection Fraction Percentage: 65-70
- ARNI
Patient already on ARNI: No
Heart Failure ARNI Not Indicated: LV Ejection Fraction >/= 40%
- ACEI/ARB
Patient already on ACEI/ARB: No
Heart Failure ACEI/ARB Not Indicated: LV Ejection Fraction > 40%
- Beta Sumit
Patient already on Evidence Based Beta Sumit: No
Heart Failure Evidence Based Beta Sumit Not Indicated: LV Ejection Fraction > 40%
- Mineralocorticord Receptor Antagonist
Patient already on MRA: No
Heart Failure MRA Not Indicated: LV Ejection Fraction > 40%
- SGLT-2 Inhibitor
Patient already on SGLT-2 Inhibitor: No
Heart Failure SGLT-2 Inhibitor Contraindication: Patient Refusal
- Afib Anticoagulation
Patient already on Anticoagulation for Afib: Yes
- NYHA CHF Classification
NYHA CHF Classification Level: Class III - Symptoms w/ min exertion, interferes w/ nml daily activity
- ACC/AHA Stage
ACC/AHA Stage: Stage C: Symptomatic Heart Failure
== END 2024-07-28 16:33 | disposition home health service (06) | DRG 291 ==
LOC: 2 NORTH 23:57
PROVIDERS: Internal Medicine; Nuclear Medicine Nuclear Cardiology; ADMITTING PHYSICIAN Hospitalist; ATTENDING PHYSICIAN Family Medicine; CONSULT PHYSICIAN Internal Medicine Cardiovascular Disease; EMERGENCY PHYSICIAN Emergency Medicine; FAMILY PHYSICIAN Internal Medicine
PROC: 5A2204Z Restoration of Cardiac Rhythm, Single (ICD-10-PCS; 2024-07-27)
PROC: B24BZZ4 Ultrasonography of Heart with Aorta, Transesophageal (ICD-10-PCS; 2024-07-27)
DX: I11.0 Hypertensive heart disease with heart failure (principal); I50.33 Acute on chronic diastolic (congestive) heart failure; J96.01 Acute respiratory failure with hypoxia; Q24.5 Malformation of coronary vessels; E46 Unspecified protein-calorie malnutrition; E78.00 Pure hypercholesterolemia, unspecified; F32.A Depression, unspecified; F41.9 Anxiety disorder, unspecified; K21.9 Gastro-esophageal reflux disease without esophagitis; I25.10 Atherosclerotic heart disease of native coronary artery without angina pectoris; J45.909 Unspecified asthma, uncomplicated; I48.91 Unspecified atrial fibrillation; R31.9 Hematuria, unspecified; K59.00 Constipation, unspecified; G47.00 Insomnia, unspecified; R30.9 Painful micturition, unspecified; Z77.090 Contact with and (suspected) exposure to asbestos; Z77.22 Contact with and (suspected) exposure to environmental tobacco smoke (acute) (chronic); Z88.2 Allergy status to sulfonamides; Z86.73 Personal history of transient ischemic attack (TIA), and cerebral infarction without residual deficits; Z82.49 Family history of ischemic heart disease and other diseases of the circulatory system; Z88.6 Allergy status to analgesic agent; Z88.8 Allergy status to other drugs, medicaments and biological substances; Z86.19 Personal history of other infectious and parasitic diseases; Z11.52 Encounter for screening for COVID-19; Z79.82 Long term (current) use of aspirin; Z68.28 Body mass index [BMI] 28.0-28.9, adult
CPT/HCPCS: 71046; 80048; 80053; 81003; 81015; 83880; 84484; 85025; 85027; 87070; 87502; 87811; 92960; 93005; 93306; 93312; 93320; 93325; 93970; 94640; 96374; 99285

== ENCOUNTER 2024-08-05 07:12 | Outpatient (RCR) | payer MEDICARE, BC, SELFPAY | END 2024-08-05 23:59 | disposition home or self-care (01) | LOC: RPT 07:12 | PROVIDERS: ATTENDING PHYSICIAN Surgery Vascular Surgery; FAMILY PHYSICIAN Internal Medicine | DX: I89.0 Lymphedema, not elsewhere classified (principal); Z73.6 Limitation of activities due to disability; M79.605 Pain in left leg; M79.604 Pain in right leg | CPT/HCPCS: 97163; 97530 ==

== ENCOUNTER → 2024-08-05 14:58 | Outpatient (REF) | payer MEDICARE, BC, SELFPAY ==
[2024-08-05 16:16] LABS: Blood Urea Nitrogen 24 mg/dl (9-20); Calcium 9.4 mg/dl (8.4-10.2); Carbon Dioxide 28 mmol/L (22-30); Chloride 99 mmol/L (98-107); Glucose 95 mg/dl (70-99); Potassium 4.8 mmol/L (3.5-5.1); Sodium 137 mmol/L (135-145); eGFR > 60.00
== END ==
LOC: REG 14:58
PROVIDERS: ATTENDING PHYSICIAN Nurse Practitioner; FAMILY PHYSICIAN Internal Medicine; OTHER PHYSICIAN Internal Medicine Cardiovascular Disease; REFERRING PHYSICIAN Internal Medicine Hematology & Oncology
DX: I87.2 Venous insufficiency (chronic) (peripheral) (principal); I73.9 Peripheral vascular disease, unspecified; R07.89 Other chest pain; Z86.73 Personal history of transient ischemic attack (TIA), and cerebral infarction without residual deficits; I48.91 Unspecified atrial fibrillation; I50.31 Acute diastolic (congestive) heart failure
CPT/HCPCS: 36415; 80048

== ENCOUNTER 2024-08-17 18:28 | Emergency (ER) | payer MEDICARE, BC, SELFPAY ==
[2024-08-17 18:34] VITALS: BP 124/64
--- NOTE | 2024-08-17 19:04 | ED.GENMED ---
History of Present Illness
General
Chief Complaint: Skin Surface Trauma
Time Seen by Provider: 08/17/24 18:59
History of Present Illness
History of Present Illness:
TIME OF INITIAL ENCOUNTER: 7:05 PM
HPI: Patient presents with a skin tear at the right wrist. He is on Eliquis. Something slid along the right wrist. He was also concerned because he had similar but more severe wounds to his leg which got infected and required hospitalization. He
denies any significant pain at the right wrist.
EXAM:
GENERAL: Well appearing in no distress
HEENT: Moist oral mucosa
NEUROLOGIC: Excellent strength all extremities, no obvious coordination deficits
PSYCHIATRIC: Appropriate mental status, normal insight and judgement
EXTREMITIES: Nontender, no edema, moves all extremities equally
SKIN: There is a 2.5 cm curvilinear skin tear to the radial side of the right wrist with no bony tenderness and very good active range of motion
NUMBER AND COMPLEXITY OF PROBLEMS ADDRESSED AT THE ENCOUNTER
� Chronic conditions affecting care: A-fib on Eliquis, CHF
� Acute Exacerbation and/or Progression of Chronic Illness: This is an acute problem
� Differential Diagnosis includes: Laceration, no clinical evidence for fracture
AMOUNT AND/OR COMPLEXITY OF DATA TO BE REVIEWED AND ANALYZED
� I performed an independent evaluation of and my interpretation is:
EKG:
CT:
X-rays:
Laboratory Studies:
Other:
� Review of other/old records: I reviewed records, the patient has a history of A-fib and was admitted for A-fib earlier this month
� Clinical information was obtained by an independent historian: None needed
� Prescriptions/Medications Considered but not given:
� Further testing considered but not performed:
RISK OF COMPLICATIONS AND/OR MORBIDITY OR MORTALITY OF PATIENT MANAGEMENT
� Social determinants of health affecting care: Lives at home
� Discussion with other providers:
� Escalation of care including admission/observation vs risk of discharge considered: The wound was irrigated and skin was reapproximated appropriately before tissue adhesive and Steri-Strips placed. Will place on antibiotics as
he is prone to infection.
ANY OTHER UPDATES:
Past History
Past History
ED Past Medical History: GERD, HTN and Hypercholesterolemia
ED Past Surgical History: None
Social History
Tobacco: Non-smoker
Alcohol: None
Drug: None
Personal:
Living: with family
Employment: Employed
Phy Exam
Physical Exam
Physical Exam:
See HPI
Course
Orders/Labs/Results
Orders:
Orders
08/17/24 19:25
Cephalexin Monohydrate [Keflex] 500 mg PO NOW STA
Vital Signs
Initial and Last Documented VS:
Initial Vital Signs
Temp Pulse Resp BP Pulse Ox
36.9 C 73 18 124/64 98
08/17/24 18:34 08/17/24 18:34 08/17/24 18:34 08/17/24 18:34 08/17/24 18:34
Last Documented Vital Signs
Temp Pulse Resp BP Pulse Ox
36.9 C 73 18 124/64 98
08/17/24 18:34 08/17/24 18:34 08/17/24 18:34 08/17/24 18:34 08/17/24 18:34
Procedures
Laceration Closure
Right Wrist:
Status of Wound: clean
Size of Wound in cm: 2.5
Description of Wound Edges: sharp, flap-well vascularized and flap-poorly vascularized
Preparation: cleaned with saline
Additional information:
Tissue adhesive along with Steri-Strips use
*Critical Care Note
Total Time (30-74mins, 75-104mins- exclusive of procedures): Not Applicable
ED Attending Note
-
Portions of this chart may have been created with voice recognition software.� Occasional wrong word or��sound alike� substitutions may have occurred due to the inherent limitations of voice recognition software.
Discharge Plan
Departure
Patient Disposition: Home (Routine Discharge)
Date of Disposition: 08/17/24
Time of Disposition: 19:26
Patient with high blood pressure during this ER visit?: Yes
Discharge Problem:
Skin tear
Instructions: Laceration Repair With Glue (DC)
Prescriptions:
New
cephalexin 500 mg tablet
500 mg PO BID Qty: 6 0RF
No Action
amlodipine 5 mg Tablet
5 mg PO DAILY
zolpidem [Ambien] 10 mg Tablet
10 mg PO HS
bisacodyl 10 mg Suppository
10 mg OK DAILY
docusate sodium [Colace] 100 mg Capsule
100 mg PO BID
esomeprazole magnesium [Nexium] 20 mg Capsule,Delayed Release(Dr/Ec)
20 mg PO DAILY
coenzyme Q10 [CoQ-10] 100 mg Capsule
100 mg PO DAILY
rosuvastatin 10 mg tablet
10 mg PO DAILY
bupropion HCl 150 mg tablet extended release 24 hr
150 mg PO BID
Eliquis 5 mg Tablet
5 mg PO BID Qty: 60 0RF
furosemide 40 mg Tablet
40 mg PO DAILY Qty: 30 0RF
Referrals:
Williams Mullen MD [Family Provider] -
Activity Restrictions/Additional Instructions:
I placed Steri-Strips along with glue to the affected area after I cleaned the area with saline. Keep this dressing on until tomorrow. You could leave it open tomorrow or if you would like, you could place an additional dressing. I sent a
prescription for a couple days of antibiotics to help prevent infection as you have been prone to infections in the past.
Interventions
Interventions:
*Risk Screen - Suicide Last Done: 08/17/24 18:34
*General Assessment Last Done: 08/17/24 18:34
*Neglect/Abuse Screening Last Done: 08/17/24 18:34
*ED COVID-19 Vaccine History Last Done: 08/17/24 18:54
ED-Skin Assessment Last Done: 08/17/24 18:54
Discharge Date and Time
Print Language: THAI
[2024-08-17] MEDS: KEFLEX 500 MG PO (19:54)
== END 2024-08-17 20:25 | disposition home or self-care (01) ==
LOC: EMR 18:28
PROVIDERS: EMERGENCY PHYSICIAN Emergency Medicine; FAMILY PHYSICIAN Internal Medicine
DX: S61.511A Laceration without foreign body of right wrist, initial encounter (principal); W45.8XXA Other foreign body or object entering through skin, initial encounter; K21.9 Gastro-esophageal reflux disease without esophagitis; I10 Essential (primary) hypertension; E78.00 Pure hypercholesterolemia, unspecified; Z79.01 Long term (current) use of anticoagulants
CPT/HCPCS: 12001; 99283

== ENCOUNTER → 2024-08-23 13:56 | Outpatient (REF) | payer MEDICARE, BC, SELFPAY | LOC: RAD 13:56 | PROVIDERS: ATTENDING PHYSICIAN Surgery Vascular Surgery; FAMILY PHYSICIAN Internal Medicine | DX: I73.9 Peripheral vascular disease, unspecified (principal) | CPT/HCPCS: 93922; 93925 ==

== ENCOUNTER 2024-08-26 16:00 | Outpatient (RCR) | payer MEDICARE, BC, SELFPAY | END 2024-08-26 23:59 | disposition home or self-care (01) | LOC: RPT 16:00 | PROVIDERS: ATTENDING PHYSICIAN Surgery Vascular Surgery; FAMILY PHYSICIAN Internal Medicine | DX: I89.0 Lymphedema, not elsewhere classified (principal); Z73.6 Limitation of activities due to disability; M79.605 Pain in left leg; M79.604 Pain in right leg | CPT/HCPCS: 97110; 97530 ==

== ENCOUNTER → 2024-09-06 12:59 | Outpatient (REF) | payer MEDICARE, BC, SELFPAY | LOC: WOUND 12:59 | PROVIDERS: ATTENDING PHYSICIAN Surgery; FAMILY PHYSICIAN Internal Medicine | DX: S61.411A Laceration without foreign body of right hand, initial encounter (principal); I87.2 Venous insufficiency (chronic) (peripheral); I73.9 Peripheral vascular disease, unspecified; X58.XXXA Exposure to other specified factors, initial encounter | CPT/HCPCS: 99213 ==

== ENCOUNTER 2024-11-12 12:38 | Emergency (ER) | payer MEDICARE, BC, SELFPAY ==
[2024-11-12 12:41] VITALS: BP 166/81
[2024-11-12 14:35] VITALS: BP 167/109
--- NOTE | 2024-11-12 16:10 | ED.GENMED ---
History of Present Illness
General
Chief Complaint: Head Injury
Source: patient
Exam Limitations: none
Time Seen by Provider: 11/12/24 15:47
Nursing documentation reviewed up to this point in time: agreed with
History of Present Illness
History of Present Illness:
84 yr old male presents to the ER for evaluation of head injury. Patient reports 7 days ago he [place] hitting his head. He has had headaches since. He was not sure if he' was out for second ,' when episode
occurred. He is on Eliquis.
He denies any nausea or vomiting since. He was concerned about hitting his head with being on blood thinners which prompted him to come to the ER. In addition patient got his left wrist stuck between 2 pieces of furniture today and sustained a
skin tear. His tetanus is up-to-date.
Past History
Past History
ED Past Medical History: GERD, HTN and Hypercholesterolemia
ED Past Surgical History: None
Social History
Tobacco: Non-smoker
Alcohol: None
Drug: None
Personal:
Living: with family
Employment: Employed
Review of Systems
Review of Systems
Allergies reviewed?: Yes
All Other Systems: ROS reviewed and negative except as documented in HPI and ROS
Constitutional: Reports no symptoms; Denies fever, fatigue or chills
Respiratory: Reports no symptoms
Cardiac: Reports no symptoms
ABD/GI: Denies nausea or vomiting
: Reports no symptoms
Musculoskeletal: Denies neck pain
Skin: Reports other (skin tear to left wrist )
Neurological: Reports headache; Denies dizzy, weakness or numbness
Psychiatric: Reports no symptoms
Phy Exam
General Physical Exam
General Presentation: no apparent distress
General age: appears stated age
General Skin: warm and dry
General Habitus: normal
General Mental: alert
General Hydration: appears well hydrated
Eye Exam
Eye Exam: PERRL and EOMI
Eye Exam General: PERRL: bilateral and EOM intact: bilateral
Pupil Exam: Bilateral: round and reactive
Neurological Exam
Neurological Exam: alert and oriented x3
[place] Coma Scale
Eye Opening: Spontaneous
Verbal Response: Oriented
Motor Response: Obeys Commands
GCS Total Score: 15
Musculoskeletal Exam
Musculoskeletal Exam: other (No obvious head injury noted left wrist with superficial skin tear no bony tenderness full range of motion)
Skin Exam
Skin Exam: normal color and warm/dry
Psychiatric Exam
Psychiatric Exam: normal mood/affect
Course
Orders/Labs/Results
Orders:
Orders
11/12/24 12:45
CT Head W/o Iv Contrast Stat
Comment:
Reason For Exam: +loc, headache
Vital Signs
Initial and Last Documented VS:
Initial Vital Signs
Temp Pulse Resp BP Pulse Ox
98 F 74 16 166/81 98
11/12/24 12:41 11/12/24 12:41 11/12/24 12:41 11/12/24 12:41 11/12/24 12:41
Last Documented Vital Signs
Temp Pulse Resp BP Pulse Ox
98.0 F 77 20 167/109 99
11/12/24 14:35 11/12/24 14:35 11/12/24 14:35 11/12/24 14:35 11/12/24 14:35
MDM/Problems Addressed
MDM/Problems Addressed:
Patient is well-appearing in no acute distress sustained head injury 7 days ago on Eliquis. He presents awake alert no acute distress CAT scan negative. In addition he has a skin tear to his left wrist. This was cleansed with normal saline and
wound care was done. This does not require repair or closure. Patient's tetanus is up-to-date
*Critical Care Note
Total Time (30-74mins, 75-104mins- exclusive of procedures): Not Applicable
ED Attending Note
-
Portions of this chart may have been created with voice recognition software.� Occasional wrong word or��sound alike� substitutions may have occurred due to the inherent limitations of voice recognition software.
Discharge Plan
Departure
Patient Disposition: Home (Routine Discharge)
Date of Disposition: 11/12/24
Time of Disposition: 16:27
Patient with high blood pressure during this ER visit?: Yes
Condition: Fair
Covid-19: Not Applicable
Discharge Problem:
Head injury, Skin tear
Instructions: Wound Care (DC), Head Injury in Adults (DC), BLOOD PRESSURE
Prescriptions:
No Action
amlodipine 5 mg Tablet
5 mg PO DAILY
zolpidem [Ambien] 10 mg Tablet
10 mg PO HS
bisacodyl 10 mg Suppository
10 mg AL DAILY
docusate sodium [Colace] 100 mg Capsule
100 mg PO BID
esomeprazole magnesium [Nexium] 20 mg Capsule,Delayed Release(Dr/Ec)
20 mg PO DAILY
coenzyme Q10 [CoQ-10] 100 mg Capsule
100 mg PO DAILY
rosuvastatin 10 mg tablet
10 mg PO DAILY
bupropion HCl 150 mg tablet extended release 24 hr
150 mg PO BID
Eliquis 5 mg Tablet
5 mg PO BID Qty: 60 0RF
furosemide 40 mg Tablet
40 mg PO DAILY Qty: 30 0RF
cephalexin 500 mg tablet
500 mg PO BID Qty: 6 0RF
Referrals:
Williams Mullen MD [Family Provider, Internal Medicine]
Activity Restrictions/Additional Instructions:
Wash wound to wrist twice a day with soap and water pat dry apply small layer of antibiotic ointment to the area. See family doctor as needed in the next several days for wound check. Return if any signs of infection, increased pain swelling
redness fever chills
Interventions
Interventions:
*Risk Screen - Suicide Last Done: 11/12/24 12:41
*Neglect/Abuse Screening Last Done: 11/12/24 12:41
*ED- Fall Risk Assessment Last Done: 11/12/24 15:34
ED- Neurological Assessment Last Done: 11/12/24 14:54
ED-Skin Assessment Last Done: 11/12/24 14:54
Discharge Date and Time
Print Language: ALBANIAN
[2024-11-12 16:32] VITALS: BP 168/103
== END 2024-11-12 16:39 | disposition home or self-care (01) ==
LOC: EMR 12:38
PROVIDERS: EMERGENCY PHYSICIAN Emergency Medicine; FAMILY PHYSICIAN Internal Medicine
DX: S09.90XA Unspecified injury of head, initial encounter (principal); S61.512A Laceration without foreign body of left wrist, initial encounter; W19.XXXA Unspecified fall, initial encounter; Z79.01 Long term (current) use of anticoagulants; I10 Essential (primary) hypertension
CPT/HCPCS: 99284; 70450

== ENCOUNTER → 2024-11-16 13:19 | Outpatient (REF) | payer MEDICARE, BC, SELFPAY | LOC: WOUND 13:19 | PROVIDERS: ATTENDING PHYSICIAN Surgery; FAMILY PHYSICIAN Internal Medicine | DX: L97.222 Non-pressure chronic ulcer of left calf with fat layer exposed (principal); C44.90 Unspecified malignant neoplasm of skin, unspecified; S61.412A Laceration without foreign body of left hand, initial encounter; S61.411A Laceration without foreign body of right hand, initial encounter; I73.9 Peripheral vascular disease, unspecified; I87.2 Venous insufficiency (chronic) (peripheral); X58.XXXA Exposure to other specified factors, initial encounter | CPT/HCPCS: 88305; 11104; 99213 ==

== ENCOUNTER 2024-11-19 15:17 | Emergency (ER) | payer MEDICARE, BC, SELFPAY ==
[2024-11-19 15:29] VITALS: BP 149/75
[2024-11-19 16:10] LABS: % Basophils 0.3 % (0-2); % Eosinophils 1.1 % (0-6); % Immature Granulocytes 0.2 % (0-0.5); % Lymphocytes 14.3 % (20.5-51.1); % Monocytes 13.8 % (1.7-9.3); % Neutrophils 70.3 % (42.2-75.2); Absolute Eosinophils 0.1 10^3/uL (0-0.7); Absolute Lymphocytes 1.3 10^3/uL (1.2-3.4); Absolute Monocytes 1.2 10^3/uL (0.1-0.6); Absolute Neutrophils 6.2 10^3/uL (1.4-6.5); Hematocrit 39.8 % (39.0-52.0); Mean Corp Hgb Conc. 32.7 g/dL (33.0-37.0); Mean Corpuscular Hgb 29.5 pg (27.0-31.0); Mean Corpuscular Volume 90.2 fL (80.0-94.0); Mean Platelet Volume 9.5 fL (7.4-10.4); Nucleated Red Blood Cells % 0 % (-); Platelet Count 199 10^3/uL (130-400); Red Blood Cell Count 4.41 10^6/uL (4.70-6.10); Red Cell Dist. Width 14.7 % (11.5-14.5); White Blood Cell Count 8.8 10^3/uL (4.8-10.8)
[2024-11-19 16:33] LABS: NT-proBNP 2410 pg/ml; Troponin I < 0.012 ng/ml
[2024-11-19 16:42] LABS: ALT (SGPT) 16 U/L (0-50); AST (SGOT) 21 U/L (17-59); Albumin 4.4 g/dl (3.5-5.0); Alkaline Phosphatase 93 U/L (38-126); Blood Urea Nitrogen 23 mg/dl (9-20); Calcium 9.1 mg/dl (8.4-10.2); Carbon Dioxide 23 mmol/L (22-30); Chloride 103 mmol/L (98-107); Glucose 105 mg/dl (70-99); Potassium 4.7 mmol/L (3.5-5.1); Sodium 136 mmol/L (135-145); Total Protein 6.9 g/dl (6.3-8.2); eGFR > 60.00
[2024-11-19 16:45] VITALS: BP 139/68
[2024-11-19 17:00] VITALS: BP 121/63; BMI 25.9
--- NOTE | 2024-11-19 18:43 | ED.GENMED ---
History of Present Illness
General
Chief Complaint: Breathing Problem
Time Seen by Provider: 11/19/24 17:32
History of Present Illness
History of Present Illness:
84-year-old male history of asthma, atrial fibrillation on Eliquis, CHF, hypertension, hyperlipidemia presenting with hiccups for the past 3 days. Patient states that he just fell asleep in the ER, and when he woke up, hiccups resolved. Patient
also reports shortness of breath for the past 1 year. Patient states that he feels dizzy at times. Patient states that he had a biopsy on his left huang on Thursday 11/16 and has noticed increased surrounding redness and swelling. Patient denies
fever, chills, chest pain or cough. Patient denies abdominal pain, nausea, vomiting or diarrhea.
Past History
Past History
ED Past Medical History: GERD, HTN and Hypercholesterolemia
ED Past Surgical History: None
Social History
Tobacco: Non-smoker
Alcohol: None
Drug: None
Personal:
Living: with family
Employment: Employed
Phy Exam
Physical Exam
Physical Exam:
General: Alert, no acute distress, no hiccups
Head: NCAT
Eyes: clear conjunctiva
Neck: supple
Cardiac: regular rate and rhythm, no murmur
Lungs: clear to auscultation bilaterally. No wheezes, rales, or rhonchi. Speaking full unlabored sentences. No respiratory distress.
Abdomen: soft, nondistended nontender. No rebound or guarding.
MSK: Healing wound to his left huang with surrounding erythema, edema, and increased warmth. No swelling to right lower extremity
Skin: warm, dry
Neuro: Alert and oriented x3. no focal deficits
Scores
Heart Failure Risk
Heart Failure Risk Score: Not Applicable
Course
Orders/Labs/Results
Orders:
Orders
11/19/24 15:20
EKG [Electrocardiogram (*1)] Urgent
Reason for Study: Shortness of Breath
EKG- Treatment ONCE
11/19/24 15:59
Complete Blood Count/With Diff Urgent
Comprehensive Metabolic Panel Urgent
NT-proBNP Urgent
Troponin I Urgent
11/19/24 17:33
CXR2 [CR Chest - 2 Views ] Urgent
Comment:
Reason For Exam: sob, hx chf
11/19/24 19:11
Cephalexin Monohydrate [Keflex] 500 mg PO NOW STA
Abnormal Lab Results
11/19/24
15:59
RBC 4.41 L 10^6/uL
(4.70-6.10)
MCHC 32.7 L g/dL
(33.0-37.0)
RDW 14.7 H %
(11.5-14.5)
Absolute Monos (auto) 1.2 H 10^3/uL
(0.1-0.6)
Lymphocytes % 14.3 L %
(20.5-51.1)
Monocytes % 13.8 H %
(1.7-9.3)
BUN 23 H mg/dl
(9-20)
Glucose 105 H mg/dl
(70-99)
11/19/24 15:59
11/19/24 15:59
Vital Signs
Initial and Last Documented VS:
Initial Vital Signs
Temp Pulse Resp BP Pulse Ox
98.5 F 76 16 149/75 98
11/19/24 15:29 11/19/24 15:29 11/19/24 15:29 11/19/24 15:29 11/19/24 15:29
Last Documented Vital Signs
Temp Pulse Resp BP Pulse Ox
98.5 F 69 15 121/63 98
11/19/24 15:29 11/19/24 17:00 11/19/24 17:00 11/19/24 17:00 11/19/24 17:00
MDM/Problems Addressed
Differential Diagnosis Includes:
Cellulitis, CHF, pneumonia, GERD, electrolyte abnormality
MDM/Problems Addressed:
84-year-old male presenting with swelling and redness surrounding biopsy site to left left lower leg on 11/16 and hiccups starting 3 days ago. Labs reviewed. WBC 8.8 with no left shift or bandemia. BMP slightly elevated 2410 (improved from prior),
troponin wnl. CXR shows mild pulmonary congestion but no pleural effusions. On reevaluation, patient states hiccups have resolved. Discussed results with patient at bedside. Will treat cellulitis left lower extremity with Keflex. Advised to
continue taking Lasix as prescribed. Patient very concerned that hiccups might return. Will give prescription for Reglan if hiccups return. Stable discharge with PCP follow-up
*EKG
Interpreted by ED Provider?: Yes (EKG shows atrial fibrillation at 64bpm with QRS 98 QTc 439 no acute ischemic changes)
*Critical Care Note
Total Time (30-74mins, 75-104mins- exclusive of procedures): Not Applicable
ED Attending Note
-
Portions of this chart may have been created with voice recognition software.� Occasional wrong word or��sound alike� substitutions may have occurred due to the inherent limitations of voice recognition software.
Discharge Plan
Departure
Patient Disposition: Home (Routine Discharge)
Date of Disposition: 11/19/24
Time of Disposition: 19:15
Patient with high blood pressure during this ER visit?: Yes
Discharge Problem:
Cellulitis of left leg, Hiccups
Instructions: Cellulitis (skin infection) in adults - ED discharge instructions, BLOOD PRESSURE
Prescriptions:
New
metoclopramide HCl [Reglan] 10 mg tablet
10 mg PO Q6H PRN (Reason: nausea and vomiting, hiccups) Qty: 20 0RF
cephalexin 500 mg capsule
500 mg PO Q8H 7 Days Qty: 21 0RF
No Action
amlodipine 5 mg Tablet
5 mg PO DAILY
zolpidem [Ambien] 10 mg Tablet
10 mg PO HS
bisacodyl 10 mg Suppository
10 mg [place] DAILY
docusate sodium [Colace] 100 mg Capsule
100 mg PO BID
esomeprazole magnesium [Nexium] 20 mg Capsule,Delayed Release(Dr/Ec)
20 mg PO DAILY
coenzyme Q10 [CoQ-10] 100 mg Capsule
100 mg PO DAILY
rosuvastatin 10 mg tablet
10 mg PO DAILY
bupropion HCl 150 mg tablet extended release 24 hr
150 mg PO BID
Eliquis 5 mg Tablet
5 mg PO BID Qty: 60 0RF
furosemide 40 mg Tablet
40 mg PO DAILY Qty: 30 0RF
cephalexin 500 mg tablet
500 mg PO BID Qty: 6 0RF
Referrals:
NONE,* [Active, Internal Medicine]
Activity Restrictions/Additional Instructions:
Take Keflex 3 times daily for the next 7 days
Take Reglan if hiccups return
Continue taking Lasix as prescribed
Follow-up with primary care doctor next week
Return to the emergency department for chest pain, fever, swelling in both legs or new/worsening symptoms
Interventions
Interventions:
*Risk Screen - Suicide Last Done: 11/19/24 15:29
*Neglect/Abuse Screening Last Done: 11/19/24 15:29
*Nursing Disposition Last Done: 11/19/24 19:56
ED- Cardiac Assessment Last Done: 11/19/24 17:00
ED- Pulmonary Assessment Last Done: 11/19/24 17:00
Discharge Date and Time
Discharge Date/Time: 11/19/24 20:00
Print Language: DUTCH
[2024-11-19] MEDS: KEFLEX 500 MG PO (19:56)
== END 2024-11-19 20:00 | disposition home or self-care (01) ==
LOC: EMR 15:17
PROVIDERS: Emergency Medicine; EMERGENCY PHYSICIAN Emergency Medicine; FAMILY PHYSICIAN Internal Medicine
DX: L03.116 Cellulitis of left lower limb (principal); R06.6 Hiccough; E78.00 Pure hypercholesterolemia, unspecified; I11.0 Hypertensive heart disease with heart failure; I50.9 Heart failure, unspecified; I48.91 Unspecified atrial fibrillation; J45.909 Unspecified asthma, uncomplicated; Z79.01 Long term (current) use of anticoagulants
CPT/HCPCS: 99285; 71046; 80053; 83880; 84484; 85025; 93005

== ENCOUNTER → 2024-11-22 13:36 | Outpatient (REF) | payer MEDICARE, BC, SELFPAY | LOC: WOUND 13:36 | PROVIDERS: ATTENDING PHYSICIAN Surgery; FAMILY PHYSICIAN Internal Medicine | DX: L97.222 Non-pressure chronic ulcer of left calf with fat layer exposed (principal); L03.116 Cellulitis of left lower limb; C44.90 Unspecified malignant neoplasm of skin, unspecified; I73.9 Peripheral vascular disease, unspecified; I87.2 Venous insufficiency (chronic) (peripheral) | CPT/HCPCS: 11043; 99215 ==

== ENCOUNTER 2024-11-22 14:19 | Emergency (ER) | payer MEDICARE, BC, SELFPAY ==
[2024-11-22 14:22] VITALS: BP 192/97
[2024-11-22] MEDS: PERCOCET 5/325 2 TABLET PO (14:30)
[2024-11-22 14:51] LABS: % Basophils 0.4 % (0-2); % Eosinophils 2.3 % (0-6); % Immature Granulocytes 0.1 % (0-0.5); % Lymphocytes 17.4 % (20.5-51.1); % Monocytes 13.6 % (1.7-9.3); % Neutrophils 66.2 % (42.2-75.2); Absolute Eosinophils 0.2 10^3/uL (0-0.7); Absolute Lymphocytes 1.4 10^3/uL (1.2-3.4); Absolute Monocytes 1.1 10^3/uL (0.1-0.6); Absolute Neutrophils 5.1 10^3/uL (1.4-6.5); Hematocrit 38.9 % (39.0-52.0); Hemoglobin 12.8 g/dL (13.0-18.0); Mean Corp Hgb Conc. 32.9 g/dL (33.0-37.0); Mean Corpuscular Volume 91.1 fL (80.0-94.0); Mean Platelet Volume 9.9 fL (7.4-10.4); Nucleated Red Blood Cells % 0 % (-); Platelet Count 232 10^3/uL (130-400); Red Blood Cell Count 4.27 10^6/uL (4.70-6.10); Red Cell Dist. Width 14.7 % (11.5-14.5); White Blood Cell Count 7.7 10^3/uL (4.8-10.8)
[2024-11-22 15:11] LABS: ALT (SGPT) 17 U/L (0-50); AST (SGOT) 21 U/L (17-59); Albumin 4.5 g/dl (3.5-5.0); Alkaline Phosphatase 85 U/L (38-126); Blood Urea Nitrogen 19 mg/dl (9-20); Calcium 9.4 mg/dl (8.4-10.2); Carbon Dioxide 28 mmol/L (22-30); Chloride 105 mmol/L (98-107); Glucose 95 mg/dl (70-99); Potassium 4.7 mmol/L (3.5-5.1); Sodium 139 mmol/L (135-145); Total Bilirubin 0.6 mg/dl (0.2-1.3); Total Protein 7.2 g/dl (6.3-8.2); eGFR > 60.00
[2024-11-22 15:23] LABS: Troponin I < 0.012 ng/ml
[2024-11-22 16:53] VITALS: BP 129/65
[2024-11-22 17:00] VITALS: BP 132/72
[2024-11-22 18:00] VITALS: BP 147/86
[2024-11-22] MEDS: KEFLEX 500 MG PO (18:18)
--- NOTE | 2024-11-22 18:46 | ED.GENMED ---
History of Present Illness
General
Chief Complaint: Skin Problem
Time Seen by Provider: 11/22/24 18:02
History of Present Illness
History of Present Illness:
Note:
CHIEF COMPLAINT(S)
Lower leg wound with persistent pain.
HISTORY OF PRESENT ILLNESS
The patient is an 84-year-old male who presents with a painful wound on the left lower leg. The issue began approximately four months ago when the patient developed a sore that was treated at a wound center and initially healed after one to two
months. However, a scab formed that persisted for two months until it fell off last Friday, coinciding with a planned appointment at the wound center. The wound was scraped and biopsied on that day, leading to significant pain described as
'unbearable.' The patient has since been experiencing severe pain and was advised to visit the emergency room last Friday, where he was started on antibiotics. Despite treatment, the wound remains painful. The patient visited the wound center again
today for a follow-up, during which additional scraping was performed, causing extreme discomfort. Due to concerns about managing the pain and the wound specialists recommendation, the patient was sent to the emergency room again. The current
treatment includes antibiotics and measures for symptom relief.
ADDITIONAL HISTORY OBTAINED FROM SOURCES OTHER THAN THE PATIENT
According to the patient, the wound was treated at a wound care center where a biopsy was performed, leading to increased pain. No notes or communication from the wound center were provided during this ER visit.
CHRONIC MEDICAL CONDITIONS SIGNIFICANTLY AFFECTING CARE
The patient mentions a previous bout of infection requiring intravenous antibiotics, as well as the need to care for a bedridden at home, indicating potential logistical challenges with hospitalization or extended care plans.
SOCIAL DETERMINANTS AFFECTING HEALTH
The patients is bedridden at home, requiring his care, which poses challenges to hospital admission or treatment plans, particularly if intravenous antibiotics are necessary.
REVIEW OF SYSTEMS
- Skin: Open wound on left lower leg with prior biopsy, persistent and increasing pain.
- Cardiovascular: History of hypertension with recent elevated blood pressure, but no current chest pain or cardiac concerns.
- Musculoskeletal: Persistent wound pain despite treatment.
- General: Denies current chest pain.
PHYSICAL EXAM
- Nursing notes reviewed and vital signs reviewed.
- Skin: Small wound to the left anterior lower leg with mild surrounding swelling, intact packing, moderate tenderness to palpation, no erythema or warmth observed.
- Cardiovascular: Heart exam unremarkable.
- Respiratory: Lung exam unremarkable.
- General: Patient well appearing, denies active chest pain.
PROBLEM LIST
Acute:
- Painful wound on left lower leg
- Elevated blood pressure
Chronic:
- Responsibility of caregiving for bedridden spouse
PLAN
- Continue current antibiotic regimen.
- Administer a dose of Cefalexin missed by the patient for treatment adherence.
- Contact medical laboratory specialist for clarification on the recommended plan of care.
DIFFERENTIAL DIAGNOSIS
The Differential Diagnosis includes, in no particular order and is not limited to:
1. Cellulitis
2. Deep vein thrombosis
3. Neuropathic ulcer
4. Arterial insufficiency ulcer
5. Infected sebaceous cyst
6. Venous stasis ulcer
7. Contact dermatitis
8. Gout
9. Osteomyelitis
10. Erythema nodosum
Disposition:
DIAGNOSIS
- Chronic wound on left lower extremity (ICD-10: L97.929)
SUMMARY OF ENCOUNTER
The patient, an 84-year-old male, was referred to the emergency department from a wound care center due to a chronic wound on the left lower extremity. The referral was primarily due to the significant pain experienced during a wound debridement
procedure. On arrival to the ED, the patient was administered pain medication, which resulted in complete resolution of his symptoms. He presented with no fever and the laboratory workup showed no serum leukocytosis, indicating an absence of
infection. The wound itself was not erythematous or warm, further lowering the suspicion of significant infection.
DISPOSITION
Discharge
ASSESSMENT
The patient appears clinically well with a low suspicion of a significant infection at this time. The main concern was the severe pain experienced post-procedure.
PLAN
- Change Cephalexin to Augmentin and prescribe pain medication.
- Recommend close follow-up with outpatient infectious disease and wound care.
- Instruct the patient to remove the wound packing himself in two days.
MEDICATION RECONCILIATION
- Change from Cephalexin to Augmentin
- Prescribed pain medication
MEDICAL DECISION MAKING
Number and Complexity of Problems Addressed: The patient�s chronic wound and severe pain required differential diagnosis to rule out significant infection.
Data: Reviewed the absence of infection indicators and managed pain effectively.
Risk: Social determinants such as the need to care for a bedridden spouse influenced the decision against hospital admission and impacted care continuity at home.
Past History
Past History
ED Past Medical History: GERD, HTN and Hypercholesterolemia
ED Past Surgical History: None
Social History
Tobacco: Non-smoker
Alcohol: None
Drug: None
Personal:
Living: with family
Employment: Employed
Phy Exam
Physical Exam
Physical Exam:
.
Course
Orders/Labs/Results
Orders:
Orders
11/22/24 14:21
ECG [Electrocardiogram (*1)] Urgent
Reason for Study: Chest Pain
EKG- Treatment ONCE
11/22/24 14:29
Oxycodone/Acetaminophen [Percocet 5/325] 2 tablet .ROUTE .STK-MED ONE
11/22/24 14:30
Oxycodone/Acetaminophen [Percocet 5/325] 2 tablet PO NOW STA
11/22/24 14:37
Complete Blood Count/With Diff Urgent
Comprehensive Metabolic Panel Urgent
Troponin I Urgent
11/22/24 18:10
Cephalexin Monohydrate [Keflex] 500 mg PO NOW STA
Abnormal Lab Results
11/22/24
14:37
RBC 4.27 L 10^6/uL
(4.70-6.10)
Hgb 12.8 L g/dL
(13.0-18.0)
Hct 38.9 L %
(39.0-52.0)
MCHC 32.9 L g/dL
(33.0-37.0)
RDW 14.7 H %
(11.5-14.5)
Absolute Monos (auto) 1.1 H 10^3/uL
(0.1-0.6)
Lymphocytes % 17.4 L %
(20.5-51.1)
Monocytes % 13.6 H %
(1.7-9.3)
11/22/24 14:37
11/22/24 14:37
Vital Signs
Initial and Last Documented VS:
Initial Vital Signs
Temp Pulse Resp BP Pulse Ox
98.9 F 74 16 192/97 98
11/22/24 14:22 11/22/24 14:22 11/22/24 14:22 11/22/24 14:22 11/22/24 14:22
Last Documented Vital Signs
Temp Pulse Resp BP Pulse Ox
97.8 F 58 13 147/86 91
11/22/24 16:59 11/22/24 18:30 11/22/24 18:30 11/22/24 18:00 11/22/24 18:00
*Critical Care Note
Total Time (30-74mins, 75-104mins- exclusive of procedures): Not Applicable
ED Attending Note
-
Portions of this chart may have been created with voice recognition software.� Occasional wrong word or��sound alike� substitutions may have occurred due to the inherent limitations of voice recognition software.
Discharge Plan
Departure
Patient Disposition: Home (Routine Discharge)
Date of Disposition: 11/22/24
Time of Disposition: 18:46
Patient with high blood pressure during this ER visit?: No
Discharge Problem:
Leg wound, left, Cellulitis
Instructions: Cellulitis (Skin Infection), Adult (DC)
Prescriptions:
New
amoxicillin-pot clavulanate 875-125 mg tablet
1 tab PO BID 7 Days Qty: 14 0RF
oxycodone-acetaminophen [Endocet] 10-325 mg tablet
1 tab PO TID PRN (Reason: Pain) Qty: 8 0RF
Discontinued
cephalexin 500 mg capsule
500 mg PO Q8H 7 Days Qty: 21 0RF
No Action
amlodipine 5 mg Tablet
5 mg PO DAILY
zolpidem [Ambien] 10 mg Tablet
10 mg PO HS
bisacodyl 10 mg Suppository
10 mg [place] DAILY
docusate sodium [Colace] 100 mg Capsule
100 mg PO BID
esomeprazole magnesium [Nexium] 20 mg Capsule,Delayed Release(Dr/Ec)
20 mg PO DAILY
coenzyme Q10 [CoQ-10] 100 mg Capsule
100 mg PO DAILY
rosuvastatin 10 mg tablet
10 mg PO DAILY
bupropion HCl 150 mg tablet extended release 24 hr
150 mg PO BID
Eliquis 5 mg Tablet
5 mg PO BID Qty: 60 0RF
furosemide 40 mg Tablet
40 mg PO DAILY Qty: 30 0RF
cephalexin 500 mg tablet
500 mg PO BID Qty: 6 0RF
metoclopramide HCl [Reglan] 10 mg tablet
10 mg PO Q6H PRN (Reason: nausea and vomiting, hiccups) Qty: 20 0RF
Referrals:
Williams Mullen MD [Family Provider, Internal Medicine]
Barb Hilliard MD [Active, Infectious Diseases] - Call in 1-3 days for appt
Activity Restrictions/Additional Instructions:
Remove the packing on Friday and cover with the oil emulsion dressings as well as gauze
Stop the cephalexin and begin the Augmentin
Follow-up with wound care as well as infectious disease as we discussed
Return if you develop a fever or worsening pain
Interventions
Interventions:
*Risk Screen - Suicide Last Done: 11/22/24 14:22
*General Assessment Last Done: 11/22/24 14:22
*Neglect/Abuse Screening Last Done: 11/22/24 14:22
*ED- Fall Risk Assessment Last Done: 11/22/24 14:22
*ED COVID-19 Vaccine History Last Done: 11/22/24 14:22
*Nursing Disposition Last Done: 11/22/24 19:00
ED-Skin Assessment Last Done: 11/22/24 17:23
Discharge Date and Time
Discharge Date/Time: 11/22/24 19:20
Print Language: [place]
== END 2024-11-22 19:20 | disposition home or self-care (01) ==
LOC: EMR 14:19
PROVIDERS: EMERGENCY PHYSICIAN Emergency Medicine; FAMILY PHYSICIAN Internal Medicine
DX: S81.802A Unspecified open wound, left lower leg, initial encounter (principal); L03.116 Cellulitis of left lower limb; X58.XXXA Exposure to other specified factors, initial encounter; I10 Essential (primary) hypertension; E78.00 Pure hypercholesterolemia, unspecified
CPT/HCPCS: 99284; 80053; 84484; 85025; 93005

== ENCOUNTER → 2024-11-23 13:19 | Outpatient (REF) | payer MEDICARE, BC, SELFPAY | LOC: WOUND 13:19 | PROVIDERS: ATTENDING PHYSICIAN Surgery; FAMILY PHYSICIAN Internal Medicine | DX: L97.222 Non-pressure chronic ulcer of left calf with fat layer exposed (principal); L03.116 Cellulitis of left lower limb; C44.90 Unspecified malignant neoplasm of skin, unspecified; I73.9 Peripheral vascular disease, unspecified; I87.2 Venous insufficiency (chronic) (peripheral) | CPT/HCPCS: 99213 ==

== ENCOUNTER → 2024-12-31 09:59 | Outpatient (REF) | payer MEDICARE, BC, SELFPAY | LOC: WOUND 09:59 | PROVIDERS: ATTENDING PHYSICIAN Surgery; FAMILY PHYSICIAN Internal Medicine | DX: L97.222 Non-pressure chronic ulcer of left calf with fat layer exposed (principal); L03.116 Cellulitis of left lower limb; C44.90 Unspecified malignant neoplasm of skin, unspecified; I73.9 Peripheral vascular disease, unspecified; I87.2 Venous insufficiency (chronic) (peripheral) | CPT/HCPCS: 11042 ==

== ENCOUNTER → 2025-01-07 14:41 | Outpatient (REF) | payer MEDICARE, BC, SELFPAY | LOC: WOUND 14:41 | PROVIDERS: ATTENDING PHYSICIAN Surgery; FAMILY PHYSICIAN Internal Medicine | DX: L97.222 Non-pressure chronic ulcer of left calf with fat layer exposed (principal); L03.116 Cellulitis of left lower limb; C44.90 Unspecified malignant neoplasm of skin, unspecified; I73.9 Peripheral vascular disease, unspecified; I87.2 Venous insufficiency (chronic) (peripheral) | CPT/HCPCS: 11042 ==

== ENCOUNTER → 2025-03-24 10:08 | Outpatient (REF) | payer MEDICARE, BC, SELFPAY | LOC: WOUND 10:08 | PROVIDERS: ATTENDING PHYSICIAN Surgery; FAMILY PHYSICIAN Internal Medicine | DX: L97.221 Non-pressure chronic ulcer of left calf limited to breakdown of skin (principal); I73.9 Peripheral vascular disease, unspecified; I87.2 Venous insufficiency (chronic) (peripheral) | CPT/HCPCS: 99213 ==

== ENCOUNTER → 2025-03-31 13:38 | Outpatient (REF) | payer MEDICARE, BC, SELFPAY | LOC: WOUND 13:38 | PROVIDERS: ATTENDING PHYSICIAN Surgery; FAMILY PHYSICIAN Internal Medicine | DX: L97.221 Non-pressure chronic ulcer of left calf limited to breakdown of skin (principal); I73.9 Peripheral vascular disease, unspecified; I87.2 Venous insufficiency (chronic) (peripheral) | CPT/HCPCS: 99213 ==

== ENCOUNTER → 2025-04-15 14:07 | Outpatient (REF) | payer MEDICARE, BC, SELFPAY | LOC: WOUND 14:07 | PROVIDERS: ATTENDING PHYSICIAN Surgery; FAMILY PHYSICIAN Internal Medicine | DX: L97.221 Non-pressure chronic ulcer of left calf limited to breakdown of skin (principal); I73.9 Peripheral vascular disease, unspecified; I87.2 Venous insufficiency (chronic) (peripheral) | CPT/HCPCS: 99212 ==

== ENCOUNTER 2025-05-03 13:40 | Outpatient (REF) | payer MEDICARE, BC, SELFPAY | END 2025-05-03 23:59 | disposition home or self-care (01) | LOC: WOUND 13:40 | PROVIDERS: ATTENDING PHYSICIAN Surgery | DX: S51.802A Unspecified open wound of left forearm, initial encounter (principal); W54.8XXA Other contact with dog, initial encounter | CPT/HCPCS: 99213 ==